=== PATIENT | female | born 1995 | race Two or more races ===

== ENCOUNTER → 2016-07-09 | Outpatient (CLI) | payer SELFPAY | LOC: RAD 18:01 | PROVIDERS: ATTEND Nurse Practitioner Women's Health | DX: Z34.83 Encounter for supervision of other normal pregnancy, third trimester (principal) | CPT/HCPCS: 76805 ==

== ENCOUNTER 2016-09-26 08:44 | Outpatient (CLI) | payer MEDICAID ==
--- NOTE | 2016-09-26 10:17 | Non Stress Test Report ---
Non Stress Test Datetime Report Generated by CPN: 09/26/2016 10:17 DEMOGRAPHIC EGA NST: 36.4 INDICATION Indication for Study (NST) Other: LC MONITORING Monitor Explained: Monitor Explained; Test Explained; Patient Verbalized Understanding Time on Monitor: 09/26/2016 09:11 Time off Monitor: 09/26/2016 09:56 NST Duration: 45 NST INTERVENTIONS NST Interventions: None BABY A: [id number] BABY A Movement : Present Contraction Frequency : 0 FHR Baseline : 135 Accelerations : 15X15 Decelerations : None Variability : Moderate 6-25bpm NST Review: Meets Criteria for Reactive NST NST Review and Verified By : D Bellavance RNC NST Results: Reactive NST REPORT Report Trigger: Send Report
== END 2016-09-26 10:24 | disposition home or self-care (01) ==
LOC: LC 08:44
PROVIDERS: ATTEND Student in an Organized Health Care Education/Training Program
PROC: 4A1HXCZ Monitoring of Products of Conception, Cardiac Rate, External Approach (ICD-10-PCS; principal; 2016-09-26)
DX: Z34.93 Encounter for supervision of normal pregnancy, unspecified, third trimester (principal); Z36 Encounter for antenatal screening of mother; Z3A.36 36 weeks gestation of pregnancy
CPT/HCPCS: 59025

== ENCOUNTER 2016-10-02 11:55 | Inpatient (IN) | payer MEDICAID ==
[2016-10-02 13:15] LABS: ABSOLUTE EOSINOPHILS # (AUTO) 0.1 10^3/uL (0.0-0.6); ABSOLUTE LYMPHOCYTES (AUTO) 1.6 10^3/uL (0.5-4.7); ABSOLUTE MONOCYTES (AUTO) 0.8 10^3/uL (0.1-1.4); ABSOLUTE NEUT (AUTO) 8.6 10^3/uL (1.7-8.2); BASOPHILS % (AUTO) 0.3 % (0-2); EOSINOPHILS % (AUTO) 1.1 % (0-6); HEMOGLOBIN 9.6 g/dL (12.0-15.5); HGB HCT DIFFERENCE -1.2; LYMPHOCYTES % (AUTO) 14.2 % (13-45); MEAN CORPUSCULAR HEMOGLOBIN 25.3 pg (27.0-33.4); MEAN CORPUSCULAR HGB CONC 32.2 g/dL (32.0-36.0); MEAN CORPUSCULAR VOLUME 79 fl (80-97); MONOCYTES % (AUTO) 7.1 % (3-13); RED BLOOD COUNT 3.82 10^6/uL (3.72-5.28); RED CELL DISTRIBUTION WIDTH 17.2 % (11.5-14.0); SEGMENTED NEUTROPHILS % (AUTO) 77.3 % (42-78); WHITE BLOOD COUNT 11.2 10^3/uL (4.0-10.5)
[2016-10-02] MEDS ORDERED: LIDOCAINE 1% INJ-PF (10 MG/ML) 30 ML SDV ONE (14:05)
[2016-10-02] MEDS ORDERED: OXYTOCIN/NORMAL SALINE 20 UNIT/1,000 ML RTUINJ ONE (14:05)
[2016-10-02] MEDS ORDERED: MISOPROSTOL 0.2 MG TABLET ONE (14:05)
[2016-10-02] MEDS ORDERED: PROMETHAZINE HCL INJ 25 MG/1 ML VIAL IV PRN (14:25)
[2016-10-02] MEDS ORDERED: MEASLES,MUMPS&RUBELLA VACC/PF 0.5 ML VIAL SUBCUT PRN (14:25)
[2016-10-02] MEDS ORDERED: ACETAMINOPHEN WITH CODEINE #3 TABLET PO PRN (14:25)
[2016-10-02] MEDS ORDERED: DIPHENHYDRAMINE HCL 25 MG CAPSULE PO PRN (14:25)
[2016-10-02] MEDS ORDERED: PROMETHAZINE HCL 25 MG TABLET PO PRN (14:25)
[2016-10-02] MEDS ORDERED: DIBUCAINE 1% OINTMENT 28 GM TP PRN (14:25)
[2016-10-02] MEDS ORDERED: PSEUDOEPHEDRINE HCL 30 MG TABLET PO PRN (14:25)
[2016-10-02] MEDS ORDERED: BENZOCAINE/MENTHOL AEROSOL SPRAY 56 ML TOP PRN (14:25)
[2016-10-02] MEDS ORDERED: NA PHOS,M-B/NA PHOS,DI-BA (ADULT) 133 ML ENEMA PR PRN (14:25)
[2016-10-02] MEDS ORDERED: OXYTOCIN/NORMAL SALINE 1,000 ML IV PRN (14:25)
[2016-10-02] MEDS ORDERED: MISOPROSTOL 0.2 MG TABLET PR ONE (14:25)
[2016-10-02] MEDS ORDERED: MAGNESIUM HYDROXIDE SUSP 30 ML UDCUP PO PRN (14:25)
[2016-10-02] MEDS ORDERED: GLYCERIN/WITCH HAZEL LEAF 1 EACH MED..PAD TP PRN (14:25)
[2016-10-02] MEDS ORDERED: ACETAMINOPHEN 650 MG SUPP.RECT PR PRN (14:25)
[2016-10-02] MEDS ORDERED: PROMETHAZINE HCL 25 MG SUPP.RECT PR PRN (14:25)
[2016-10-02] MEDS ORDERED: DIPH/PERTUSS(ACELL)/TETANUS VAC/PF 0.5 ML SYR (>=10YO) IM PRN (14:25)
[2016-10-02] MEDS: IBUPROFEN 800 MG TABLET PO SCH (15:21)
[2016-10-02] MEDS ORDERED: IBUPROFEN 800 MG TABLET ONE (15:22)
[2016-10-02 16:14] LABS: APPEARANCE,URINE CLOUDY; BILIRUBIN,URINE NEGATIVE (NEGATIVE); GLUCOSE, URINE NEGATIVE (NEGATIVE); KETONES,URINE 20 mg/dL (NEGATIVE); LEUKOCYTE ESTERASE,URINE TRACE (NEGATIVE); NITRITE,URINE NEGATIVE (NEGATIVE); PROTEIN,URINE 30 mg/dL (NEGATIVE); URINE SPECIFIC GRAVITY 1.008; UROBILINOGEN,URINE NEGATIVE mg/dL (<2.0)
[2016-10-02 16:34] LABS: URINE BARBITURATES SCREEN NEGATIVE; URINE METHADONE SCREEN NEGATIVE; URINE OPIATES LOW NEGATIVE; URINE PHENCYCLIDINE SCREEN NEGATIVE
[2016-10-02] MEDS: DOCUSATE SODIUM 100 MG CAPSULE PO SCH (17:29)
[2016-10-02] MEDS: FERROUS SULFATE 325 MG TABLET PO SCH (17:29)
[2016-10-02] MEDS: ACETAMINOPHEN WITH CODEINE #3 TABLET PO PRN (19:00)
[2016-10-02] MEDS: FAMOTIDINE 20 MG TABLET PO SCH (21:24)
[2016-10-03] MEDS: IBUPROFEN 800 MG TABLET PO SCH ×3 (05:04→21:09)
[2016-10-03 08:04] LABS: HEMATOCRIT 26.6 % (36.0-47.0); HEMOGLOBIN 8.8 g/dL (12.0-15.5); HGB HCT DIFFERENCE -0.2; MEAN CORPUSCULAR HEMOGLOBIN 25.8 pg (27.0-33.4); MEAN CORPUSCULAR VOLUME 78 fl (80-97); RED BLOOD COUNT 3.39 10^6/uL (3.72-5.28); RED CELL DISTRIBUTION WIDTH 17.3 % (11.5-14.0); WHITE BLOOD COUNT 11.9 10^3/uL (4.0-10.5)
[2016-10-03] MEDS: FERROUS SULFATE 325 MG TABLET PO SCH ×2 (09:49→17:12)
[2016-10-03] MEDS: PRENATAL VITAMIN W-O CA NO5/FE FUMARATE/FA CAPSULE PO SCH (09:50)
[2016-10-03] MEDS: DOCUSATE SODIUM 100 MG CAPSULE PO SCH ×2 (09:50→17:12)
[2016-10-03] MEDS: SENNOSIDES/DOCUSATE 8.6-50 MG 1 EACH TABLET PO SCH (09:50)
[2016-10-03] MEDS: FAMOTIDINE 20 MG TABLET PO SCH ×2 (09:50→21:09)
--- NOTE | 2016-10-03 09:58 | PDOC PROGRESS REPORT ---
Subjective-OB Subjective: Post Delivery Day: 21 year old. Denies any needs at this time Physical Exam (OB) Vital Signs: Temp Pulse Resp BP Pulse Ox 97.8 F 64 14 127/81 H 100 10/03/16 07:34 10/03/16 07:34 10/03/16 07:34 10/03/16 07:34 10/03/16 07:34 - Lochia Lochia Amount: Scant < 10 ml Lochia Color: Rubra/Red - Abdomen Description: Tender, Soft Hernia Present: No Bowel Sounds: Normoactive Flatus Presence: Present Stool: No Fundal Description: Firm, Midline Fundal Height: u/u - u/2 Objective-Diagnostic Laboratory: 10/03/16 07:41 10/02/16 10/02/16 10/02/16 12:53 12:53 15:55 WBC 11.2 H RBC 3.82 Hgb 9.6 L Hct 30.0 L MCV 79 L MCH 25.3 L MCHC 32.2 RDW 17.2 H Plt Count 328 Seg Neutrophils % 77.3 Lymphocytes % 14.2 Monocytes % 7.1 Eosinophils % 1.1 Basophils % 0.3 Absolute Neutrophils 8.6 H Absolute Lymphocytes 1.6 Absolute Monocytes 0.8 Absolute Eosinophils 0.1 Absolute Basophils 0.0 Urine Color RED Urine Appearance CLOUDY Urine pH 8.0 Ur Specific [place] 1.008 Urine Protein 30 H Urine Glucose (UA) NEGATIVE Urine Ketones 20 H Urine Blood LARGE H Urine Nitrite NEGATIVE Ur Leukocyte Esterase TRACE H Blood Type A POSITIVE Antibody Screen NEGATIVE 10/03/16 07:41 WBC 11.9 H RBC 3.39 L Hgb 8.8 L Hct 26.6 L MCV 78 L MCH 25.8 L MCHC 33.0 RDW 17.3 H Plt Count 250 Seg Neutrophils % Lymphocytes % Monocytes % Eosinophils % Basophils % Absolute Neutrophils Absolute Lymphocytes Absolute Monocytes Absolute Eosinophils Absolute Basophils Urine Color Urine Appearance Urine pH Ur Specific [place] Urine Protein Urine Glucose (UA) Urine Ketones Urine Blood Urine Nitrite Ur Leukocyte Esterase Blood Type Antibody Screen
[2016-10-03] MEDS: ACETAMINOPHEN WITH CODEINE #3 TABLET PO PRN (23:06)
[2016-10-04] MEDS: IBUPROFEN 800 MG TABLET PO SCH (05:01)
[2016-10-04] MEDS: ACETAMINOPHEN WITH CODEINE #3 TABLET PO PRN (05:03)
[2016-10-04 08:34] VITALS: BP 119/68
--- NOTE | 2016-10-04 10:44 | PDOC PROGRESS REPORT ---
Subjective-OB Subjective: Post Delivery Day: 21 year old. Denies any needs at this time. Ready to go home. Physical Exam (OB) Vital Signs: Temp Pulse Resp BP Pulse Ox 98.0 F 61 14 119/68 100 10/04/16 07:53 10/04/16 07:53 10/04/16 07:53 10/04/16 07:53 10/04/16 07:53 Intake & Output 10/03/16 10/04/16 10/05/16 06:59 06:59 06:59 Weight 192 kg - Lochia Lochia Amount: Scant < 10 ml Lochia Color: Serosa/Brown - Abdomen Description: Soft Hernia Present: No Bowel Sounds: Normoactive Flatus Presence: Present Stool: Yes Fundal Description: Firm, Midline Fundal Height: u/u - u/2 Objective-Diagnostic Laboratory: 10/03/16 07:41
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
[2016-10-04] MEDS: SENNOSIDES/DOCUSATE 8.6-50 MG 1 EACH TABLET PO SCH (10:54)
[2016-10-04] MEDS: FERROUS SULFATE 325 MG TABLET PO SCH (10:54)
[2016-10-04] MEDS: DOCUSATE SODIUM 100 MG CAPSULE PO SCH (10:54)
[2016-10-04] MEDS: PRENATAL VITAMIN W-O CA NO5/FE FUMARATE/FA CAPSULE PO SCH (10:54)
[2016-10-04] MEDS: FAMOTIDINE 20 MG TABLET PO SCH (10:55)
--- NOTE | 2016-10-06 23:42 | Admission Physical ---
Datetime Report Generated by CPN: 10/06/2016 23:41 CURRENT ADMISSION Hx Assessment: The History has been Reviewed and is Current Chief Complaint: Uterine Contractions; Suspected Ruptured Membranes Indication for Induction: Not Applicable Admit Plan: Admit to Unit; Initiate Labor Protocol ALLERGIES Medication Allergies: Yes Medication Allergies: bupropion HCl/Seizures (10/19/2015) Latex: No Latex Allergies Food Allergies: denies Environmental Allergies: denies OBSTETRICAL HISTORY EDC: 10/20/2016 00:00 : 2 Para: 1 Term: 1 : 0 SAB: 0 IAB: 0 Ectopic: 0 Livin Cesareans: 0 VBACs: 0 Multiple Births: 0 Gestational Diabetes: No Rh Sensitization: No Incompetent Cervix: No PATRICIA: No Infertility: No ART Treatment: No Uterine Anomaly: No IUGR: No Hx Previous C/S: No Macrosomia: No Hx Loss/Stillborn: No PIH: No Hx : No Placenta Previa/Abruption: No Depression/PP Depression: No PTL/PROM: No Post Hemorrhage: No Current Procedures: Ultrasound; NST Obstetrical History Comments: G1:mat 2016 babygirl G2: current SEE RECORDS Alcohol: No Marijuana : No Cocaine: No Other Illicit Drugs: No Cigarettes: Former Smoker. [id number] MEDICAL HISTORY Diabetes: No Blood Transfusion: No Pulmonary Disease (Asthma, TB): No Breast Disease: No Hypertension: No [employer] Surgery: No Heart Disease: No Hosp/Surgery: Yes Autoimmune Disorder: No Anesthetic Complications: No Kidney Disease: No Abnormal Pap Smear: No Neuro/Epilepsy: No Psychiatric Disorders: No Other Medical Diseases: No Hepatitis/Liver Disease: No Significant Family History: No Varicosities/Phlebitis: No Trauma/Violence : No Thyroid Dysfunction: No INFECTIOUS HISTORY Gonorrhea: No Genital Herpes: No Chlamydia: No Tuberculosis: No Syphilis: No Hepatitis: No HIV/AIDS Exposure: No Rash or Viral Illness: No HPV: No PHYSICAL EXAM General: Normal HEENT: Normal Neurologic: Normal Thyroid: Normal Heart: Normal Lungs: Normal Breast: Deferred Back: Normal Abdomen: Normal Genitourinary Exam: Normal Extremities: Normal DTRs: Normal Pelvic Type: Adequate Physical Exam Comments: GBS neg + Mec Late Care Hx IUGR Smoker, Obesity THC smoker Mitral Valve Regurg, Echo Anemia Vital Signs: Reviewed FETUS A EGA: 37.3 Monitoring: External US FHR- Baseline: 130 Variability: Moderate 6-25bpm Accelerations: 15X15 Decelerations: None Admit Comment: Admitted to labor and delivery for SROM, irregular uc's, + Mec, 5 cm, 37+3 weeks Cat 1 strip PLANS FOR LABOR AND DELIVERY Labor and Delivery: None Pain Management: Epidural Feeding Preference: Formula Benefit of Breast Feed Discussed: Yes Circumcision: No INFORMED CONSENT Assignment: Maria T Argueta MD Signature: with User ID: Rianna : with User ID: [email or web address]
--- NOTE | 2016-10-06 23:43 | Delivery Summary ---
Del Sum A-C Datetime Report Generated by CPN: 10/06/2016 23:41 DELIVERY PERSONNEL DELIVERY PERSONNEL: [phone] Delivery Doctor:: Filomena Sanchez CNM Labor and Delivery Nurse:: Shannon Argueta RNlong haul truck driver Nurse:: REG Antoine/AIRLINE MANAGERIAL SUPERVISOR: Brit Tabares CNA II MATERNAL INFORMATION Delivery Anesthesia: None Medications After Delivery: Pitocin Bolus-Please Comment; Cytotec 600mcg Per Rectum/Vagina Meds After Delivery Comment: 20 units Pitocin in 1 L NS bolusing per order Estimated Blood Loss (ml): 200 Maternal Complications: Precipitous Labor (<3hrs) Provider Comments: pt progressed quickly, out of control, viable male from OA to SILVER over intact perineum from OA to SILVER position, spont delivery of grossly nl intact placenta, 3 vc, EBL 200cc, FFFFM, cytotec 600 mcg via rectum cath after delivery 300cc, baby was placed on mothers abd and cord clamped and cut by FOB after 2 min Baby remains on mothers abd for bonding LABOR SUMMARY EDC: 10/20/2016 00:00 No. Babies in Womb: 1 Attempted: No Labor Anesthesia: None LABOR INFORMATION Reason for Induction: Not Applicable Onset of Labor: 10/02/2016 11:40 Complete Dilatation: 10/02/2016 14:00 Oxytocin: N/A Group B Beta Strep: negative Antibiotics # of Doses: 0 Name of Antibiotic Given: n/a Steroids Given: None Reason Steroids Not Administered: Not Applicable MEMBRANES Membranes Rupture Method: Spontaneous Rupture of Membranes: 10/02/2016 11:40 Length of Rupture (hr): 2.48 Amniotic Fluid Color: Clear Amniotic Fluid Amount: Moderate Amniotic Fluid Odor: Normal STAGES OF LABOR Stage 1 hr: 2 Stage 1 min: 20 Stage 2 hr: 0 Stage 2 min: 9 Stage 3 hr: 0 Stage 3 min: 5 Total Time in Labor hr: 2 Total Time in Labor min: 34 VAGINAL DELIVERY Episiotomy: None Laceration Extension: N/A Laceration Type: None Laceration Repair: Not Applicable Sponge Count Correct: N/A Sharps Count Correct: N/A CSECTION DELIVERY Primary Indication: N/A Secondary Indication: N/A CSection Incidence: N/A Labor: N/A Elective: N/A CSection Incision: N/A BABY A INFORMATION Delivery Date/Time: 10/02/2016 14:09 Method of Delivery: Vaginal Born in Route : No : N/A Forceps: N/A Vacuum Extraction: N/A PRESENTATION/POSITION BABY A Presentation: Cephalic Cephalic Presentation: Vertex Vertex Position: Left Occipital Anterior Breech Presentation: N/A PLACENTA INFORMATION BABY A Placenta Delivery Time : 10/02/2016 14:14 Placenta Method of Delivery: Spontaneous Placenta Status: Delivered SCORES BABY A Heart Rate 1 min: >100 bpm Resp Effort 1 min: Good Cry Reflex Irritability 1 min: Cough or Sneeze or Pulls Away Muscle Tone 1 min: Active Motion Color 1 min: Blue/Pale Resuscitation Effort 1 min: Tactile Stimulation SCORE 1 MIN: 8 Heart Rate 5 min: >100 bpm Resp Effort 5 min: Good Cry Reflex Irritability 5 min: Cough or Sneeze or Pulls Away Muscle Tone 5 min: Active Motion Color 5 min: Body [place], Extremities Blue Resuscitation Effort 5 min: Tactile Stimulation SCORE 5 MIN: 9 INFORMATION BABY A Gestational Age at Delivery: 37.3 Gestational Status: Early Term- 37- 38.6 Weeks Outcome : Liveborn Infant Condition : Stable Sex: Male IDENTIFICATION BABY A Verification Date/Time: 10/02/2016 14:30 ID Band Number: [id number] Mother's Name Verified: Yes Infant RN Verifying Infant: MKelley Kendall, RN, B. Rouland, RN WEIGHT/LENGTH BABY A Birthweight (gm): 3050 Weight (lb): 6 Infant Weight (oz): 12 Infant Length (in): 19.25 Length (cm): 48.90 CORD INFORMATION BABY A No. Cord Vessels: 3 Nuchal Cord : Around Neck x1, Loose Cord Blood Taken: Yes-For Storage (Mom's Blood type +) Infant Suction: Mouth; Nose ASSESSMENT BABY A Infant Complications: None Physical Findings at Delivery: Within Normal Limits Respirations: Appears Normal Skin to Skin: Yes [place]/ALS Called : No Infant Care By: Nani Zhang RN
== END 2016-10-04 13:52 | disposition home or self-care (01) | DRG 775 ==
LOC: LC 11:55 → LR 12:32 → 2S 16:35
PROVIDERS: ADMIT Obstetrics & Gynecology; ATTEND Obstetrics & Gynecology
PROC: 10E0XZZ Delivery of Products of Conception, External Approach (ICD-10-PCS; principal; 2016-10-02)
PROC: 4A1HXCZ Monitoring of Products of Conception, Cardiac Rate, External Approach (ICD-10-PCS; 2016-10-02)
DX: O99.02 Anemia complicating childbirth (principal); O99.324 Drug use complicating childbirth; Z68.45 Body mass index [BMI] 70 or greater, adult; O99.344 Other mental disorders complicating childbirth; F32.9 Major depressive disorder, single episode, unspecified; F12.980 Cannabis use, unspecified with anxiety disorder; O99.214 Obesity complicating childbirth; D64.9 Anemia, unspecified; O62.3 Precipitate labor; O69.81X0 Labor and delivery complicated by cord around neck, without compression, not applicable or unspecified; E66.9 Obesity, unspecified; Z87.891 Personal history of nicotine dependence; Z88.8 Allergy status to other drugs, medicaments and biological substances; Z3A.37 37 weeks gestation of pregnancy; Z37.0 Single live birth
CPT/HCPCS: 36415; 80307; 81005; 85025; 85027; 86592; 86850; 86900; 86901; 88307; J2590; J3490

== ENCOUNTER 2017-07-28 17:10 | Emergency (ER) | payer SELFPAY ==
[2017-07-28 17:40] VITALS: BP 127/64
--- NOTE | 2017-07-28 18:04 | ER Document Report ---
ED Medical Screen (RME) - General Chief Complaint: Vaginal Bleeding Stated Complaint: VAGINAL BLEEDING Time Seen by Provider: 07/28/17 18:02 Notes: Patient states in late May she had an elective . She states in June she had no symptoms. She states starting several days ago she began to have severe lower abdominal cramps ago and her hips and back as well as intermittent heavy vaginal bleeding with passing of large clots. TRAVEL OUTSIDE OF THE [place] IN LAST 30 DAYS: No - Related Data Allergies/Adverse Reactions: bupropion HCl [From Wellbutrin] Allergy (Verified 10/19/15 06:24) Seizures Past Medical History GI Medical History: Reports: Hx Gastroesophageal Reflux Disease Psychiatric Medical History: Reports: Hx Depression - Immunizations Immunizations up to date: Yes Hx Diphtheria, Pertussis, Tetanus Vaccination: Yes Physical Exam - Vital signs Vitals: Temp Pulse Resp BP Pulse Ox 98.5 F 80 18 127/64 H 99 07/28/17 17:38 07/28/17 17:38 07/28/17 17:38 07/28/17 17:38 07/28/17 17:38 Course - Vital Signs Vital signs: Temp Pulse Resp BP Pulse Ox 98.5 F 80 18 127/64 H 99 07/28/17 17:38 07/28/17 17:38 07/28/17 17:38 07/28/17 17:38 07/28/17 17:38
[2017-07-28 19:08] LABS: ABSOLUTE BASOPHILS # (AUTO) 0.1 10^3/uL (0.0-0.2); ABSOLUTE EOSINOPHILS # (AUTO) 0.4 10^3/uL (0.0-0.6); ABSOLUTE LYMPHOCYTES (AUTO) 2.6 10^3/uL (0.5-4.7); ABSOLUTE MONOCYTES (AUTO) 0.3 10^3/uL (0.1-1.4); ABSOLUTE NEUT (AUTO) 3.3 10^3/uL (1.7-8.2); EOSINOPHILS % (AUTO) 5.8 % (0-6); HEMATOCRIT 36.4 % (36.0-47.0); HEMOGLOBIN 11.8 g/dL (12.0-15.5); LYMPHOCYTES % (AUTO) 38.7 % (13-45); MEAN CORPUSCULAR HEMOGLOBIN 25.2 pg (27.0-33.4); MEAN CORPUSCULAR HGB CONC 32.3 g/dL (32.0-36.0); MEAN CORPUSCULAR VOLUME 78 fl (80-97); MONOCYTES % (AUTO) 4.8 % (3-13); PLATELET COUNT 366 10^3/uL (150-450); RED BLOOD COUNT 4.67 10^6/uL (3.72-5.28); RED CELL DISTRIBUTION WIDTH 15.6 % (11.5-14.0); SEGMENTED NEUTROPHILS % (AUTO) 49.7 % (42-78); TOTAL CELLS COUNTED % (AUTO) 100 %; WHITE BLOOD COUNT 6.7 10^3/uL (4.0-10.5)
--- NOTE | 2017-07-28 19:10 | ER Document Report ---
ED GI/ - General Chief Complaint: Vaginal Bleeding Stated Complaint: VAGINAL BLEEDING Time Seen by Provider: 07/28/17 18:02 Mode of Arrival: Ambulatory Information source: Patient TRAVEL OUTSIDE OF THE [place] IN LAST 30 DAYS: No - HPI Notes: 07/28/17 19:58 22-year-old lady presented today for evaluation of vaginal bleeding for the past 2 days. Patient reported that her bleeding is moderate, patient is passing multiple clots. Patient denies any lightheadedness or dizziness. Patient does have generalized abdominal cramping associated with her symptoms. Patient is not . Patient had D&C in May for elective . Patient denies any fevers, chills, nausea or vomiting. - Related Data Allergies/Adverse Reactions: bupropion HCl [From Wellbutrin] Allergy (Verified 10/19/15 06:24) Seizures Past Medical History - Social History Smoking Status: Current Every Day Smoker Frequency of alcohol use: Occasional Drug Abuse: None Family History: Reviewed & Not Pertinent Patient has suicidal ideation: No Patient has homicidal ideation: No Renal/ Medical History: Denies: Hx Peritoneal Dialysis GI Medical History: Reports: Hx Gastroesophageal Reflux Disease Psychiatric Medical History: Reports: Hx Depression - Immunizations Immunizations up to date: Yes Hx Diphtheria, Pertussis, Tetanus Vaccination: Yes Review of Systems - Review of Systems Notes: REVIEW OF SYSTEMS: CONSTITUTIONAL: -fevers, -chills EENT: -eye pain, -difficulty swallowing, -nasal congestion CARDIOVASCULAR: -chest pain, -syncope. RESPIRATORY: -cough, -SOB GASTROINTESTINAL: +abdominal cramping-nausea, -vomiting, -diarrhea GENITOURINARY: -dysuria, -hematuria, + vaginal bleeding MUSCULOSKELETAL: -back pain, -neck pain SKIN: -rash or skin lesions. HEMATOLOGIC: -easy bruising or bleeding. LYMPHATIC: -swollen, enlarged glands. NEUROLOGICAL: -altered mental status or loss of consciousness, -headache, - neurologic symptoms PSYCHIATRIC: -anxiety, -depression. ALL OTHER SYSTEMS REVIEWED AND NEGATIVE. Physical Exam - Vital signs Vitals: Temp Pulse Resp BP Pulse Ox 98.5 F 80 18 127/64 H 99 07/28/17 17:38 07/28/17 17:38 07/28/17 17:38 07/28/17 17:38 07/28/17 17:38 - Notes Notes: Reviewed vital signs and nursing note as charted by RN. CONSTITUTIONAL: Alert and oriented and responds appropriately to questions HEAD: Normocephalic; atraumatic EYES: PERRL; Conjunctivae clear, sclerae non-icteric ENT: normal nose; no rhinorrhea; moist mucous membranes; pharynx without lesions noted NECK: Supple without meningismus; non-tender; no cervical lymphadenopathy, no masses CARD: Regular rate and rhythm; no murmurs, no clicks, no rubs, no gallops; symmetric distal pulses RESP: Normal chest excursion without splinting or tachypnea; breath sounds clear and equal bilaterally ABD/GI: Normal bowel sounds; non-distended; soft, BACK: The back appears normal and is non-tender to palpation EXT: Normal ROM in all joints; non-tender to palpation; no cyanosis, no effusions, no edema SKIN: Normal color for age and race; warm; dry; good turgor; capillary refill < 2 seconds; no acute lesions noted NEURO: .Cranial nerves 3-12 intact. Motor strength 5/5 bilaterally. Sensation intact to touch bilaterally PSYCH: The patient's mood and manner are appropriate. Grooming and personal hygiene are appropriate. Course - Re-evaluation Re-evalutation: 07/28/17 19:59 22-year-old here for evaluation of vaginal bleeding Differential diagnoses includes ectopic, , anemia, dysfunctional uterine bleeding, uterine fibroids, endometriosis will obtain basic lab work including CBC, BMP, urinalysis as well as urine We will give patient 800 of Motrin Endovaginal ultrasound Reassess patient 07/28/17 20:02 Ultrasound with no acute abnormalities Patient has mild anemia that is better than her prior hemoglobin Patient does not need any transfusion or IV estrogen We will start patient on NSAIDs, follow up with [facility] for further management of dysfunctional uterine bleeding No evidence of endometriosis, no white count or retained products of conception - Vital Signs Vital signs: Temp Pulse Resp BP Pulse Ox 98.5 F 80 18 127/64 H 99 07/28/17 17:38 07/28/17 17:38 07/28/17 17:38 07/28/17 17:38 07/28/17 17:38 - Laboratory Result Diagrams: 07/28/17 18:58 07/28/17 18:58 Laboratory results interpreted by me: 07/28/17 07/28/17 07/28/17 18:58 18:58 18:58 Hgb 11.8 L MCV 78 L MCH 25.2 L RDW 15.6 H Chloride 108 H Carbon Dioxide 21 L Direct Bilirubin 0.5 H AST 12 L Urine Protein 30 H Urine Ketones TRACE H Urine Blood MODERATE H Urine Urobilinogen 4.0 H - Diagnostic Test Radiology reviewed: Image reviewed - EXAM DESCRIPTION: U/S NON-OB PELVIS TV W/O DOP COMPLETED DATE/TIME: 07/28/2017 7:34 pm REASON FOR STUDY: pain/bleeding COMPARISON: None. TECHNIQUE: Dynamic and static grayscale images acquired of the pelvis via transvaginal approach and recorded on PACS. Additional selected color Doppler and spectral images recorded. LIMITATIONS: None. FINDINGS: UTERUS: Contour normal. No mass. Uterus is 9.3 x 6.1 x 4.8 cm in size ENDOMETRIAL STRIPE: No focal or generalized thickening. No masses. Endometrial stripe 2 mm in thickness. Trace fluid in the endometrial canal. CERVIX: No nabothian cysts. RIGHT OVARY: No abnormal masses. Right ovary is 4 x 2.5 x 2.4 cm in size RIGHT OVARY DOPPLER: Normal arterial vascular flow without evidence for torsion. LEFT OVARY: No abnormal masses. Left ovary is 3.3 x 2.8 x 2.6 cm in size LEFT OVARY DOPPLER: Normal arterial vascular flow without evidence for torsion. FREE FLUID: None noted. OTHER: No other significant finding. IMPRESSION: NORMAL TRANSVAGINAL PELVIC ULTRASOUND. TECHNICAL DOCUMENTATION: JOB ID: [id number] [employer]- All Rights Reserved Dictated by: KELVIN PAINTING MD 40 CC: JENNIFER TORRES MD Discharge - Discharge Clinical Impression: DUB (dysfunctional uterine bleeding) Condition: Stable Disposition: HOME, SELF-CARE Instructions: Dysfunctional Uterine Bleeding ([facility]) Additional Instructions: Please take 600-800 mg of Motrin every 6-8 hours for your bleeding as well as pain Please follow-up with [facility] doctors for further management of her dysfunctional uterine bleeding Referrals: DAVID BECERRA MD [ACTIVE STAFF] - Follow up as needed
[2017-07-28 19:12] LABS: APPEARANCE,URINE SLIGHTLY-CLOUDY; BILIRUBIN,URINE NEGATIVE (NEGATIVE); COLOR,URINE YELLOW; GLUCOSE, URINE NEGATIVE (NEGATIVE); KETONES,URINE TRACE mg/dL (NEGATIVE); LEUKOCYTE ESTERASE,URINE NEGATIVE (NEGATIVE); NITRITE,URINE NEGATIVE (NEGATIVE); PROTEIN,URINE 30 mg/dL (NEGATIVE)
[2017-07-28 19:32] LABS: ALANINE AMINOTRANSFERASE 21 U/L (9-52); ALBUMIN 4.6 g/dL (3.5-5.0); ALKALINE PHOSPHATASE 55 U/L (38-126); ANION GAP 11 (5-19); ASPARTATE AMINO TRANSFERASE 12 U/L (14-36); BILIRUBIN,DIRECT 0.5 mg/dL (0.0-0.4); BILIRUBIN,TOTAL 0.5 mg/dL (0.2-1.3); BLOOD UREA NITROGEN 9 mg/dL (7-20); CALCIUM 9.6 mg/dL (8.4-10.2); CARBON DIOXIDE 21 mmol/L (22-30); CHLORIDE 108 mmol/L (98-107); GLUCOSE 82 mg/dL (75-110); POTASSIUM 3.8 mmol/L (3.6-5.0); SODIUM 140.4 mmol/L (137-145); TOTAL PROTEIN 7.7 g/dL (6.3-8.2)
--- NOTE | 2017-07-28 19:49 | RADIOLOGY REPORT (SQ) ---
EXAM DESCRIPTION: U/S NON-OB PELVIS TV W/O DOP COMPLETED DATE/TIME: 07/28/2017 7:34 pm REASON FOR STUDY: pain/bleeding COMPARISON: None. TECHNIQUE: Dynamic and static grayscale images acquired of the pelvis via transvaginal approach and recorded on PACS. Additional selected color Doppler and spectral images recorded. LIMITATIONS: None. FINDINGS: UTERUS: Contour normal. No mass. Uterus is 9.3 x 6.1 x 4.8 cm in size ENDOMETRIAL STRIPE: No focal or generalized thickening. No masses. Endometrial stripe 2 mm in thickn ess. Trace fluid in the endometrial canal. CERVIX: No nabothian cysts. RIGHT OVARY: No abnormal masses. Right ovary is 4 x 2.5 x 2.4 cm in size RIGHT OVARY DOPPLER: Normal arterial vascular flow without evidence for torsion. LEFT OVARY: No abnormal masses. Left ovary is 3.3 x 2.8 x 2.6 cm in size LEFT OVARY DOPPLER: Normal arterial vascular flow without evidence for torsion. FREE FLUID: None noted. OTHER: No other significant finding. IMPRESSION: NORMAL TRANSVAGINAL PELVIC ULTRASOUND. TECHNICAL DOCUMENTATION: JOB ID: [id number] [employer] All Rights Reserved
[2017-07-28] MEDS ORDERED: IBUPROFEN 600 MG TABLET PO ONE (19:58)
== END 2017-07-28 20:05 | disposition home or self-care (01) ==
LOC: ER 17:10
DX: N93.8 Other specified abnormal uterine and vaginal bleeding (principal); F17.200 Nicotine dependence, unspecified, uncomplicated
CPT/HCPCS: 36415; 76830; 80053; 81001; 81025; 85025; 99284

== ENCOUNTER 2018-06-26 15:49 | Emergency (ER) | payer SELFPAY ==
[2018-06-26 16:29] VITALS: BP 108/54
--- NOTE | 2018-06-26 18:08 | ER Document Report ---
ED Medical Screen (RME) - General Chief Complaint: Abdominal Pain Stated Complaint: NAUSEA/HEADACHE Time Seen by Provider: 06/26/18 18:04 Mode of Arrival: Ambulatory Information source: Patient Notes: This is a 22-year-old female with no significant medical history presents to the emergency room with low-grade fevers, cough, congestion, nasal stuffiness, body aches, headache. Patient also states she has been having a lump on the right side of her abdominal wall that she is concerned about. She denies any anal bleeding or vaginal discharge. She does states she has had a cough productive of sputum and has postnasal discharge. Patient's sinuses have been acting up for the past 2 weeks. TRAVEL OUTSIDE OF THE [place] IN LAST 30 DAYS: No - HPI Onset: Other - Patient has had sinus symptoms for the past 2 weeks Quality of pain: Dull Severity: Mild Associated Symptoms: Chills, Cough (nonproductive), Diarrhea, Fever, Sinus pain/drainage, Other - Postnasal discharge Exacerbated by: Denies Relieved by: Denies Similar symptoms previously: Yes Recently seen / treated by doctor: No - Related Data Smoking: Non-smoker Frequency of alcohol use: None Drug Abuse: None Allergies/Adverse Reactions: bupropion HCl [From Wellbutrin] Allergy (Verified 06/26/18 15:56) Seizures Past Medical History - General Information source: Patient - Social History Cigarette use (# per day): No Chew tobacco use (# tins/day): No Frequency of alcohol use: None Drug Abuse: None Lives with: Family Family history: None - Medical History Medical History: Negative Renal/ Medical History: Denies: Hx Peritoneal Dialysis GI Medical History: Reports: Hx Gastroesophageal Reflux Disease Psychiatric Medical History: Reports: Hx Depression Surgical Hx: Negative - Immunizations Immunizations up to date: Yes Hx Diphtheria, Pertussis, Tetanus Vaccination: Yes Review of Systems - Review of Systems Constitutional: Chills, Fever EENT: Nose congestion, Sinus pressure, Sinus discharge, Throat pain. denies: Difficulty swallowing, Throat swelling Cardiovascular: denies: Chest pain, Palpitations, Heart racing Respiratory: Cough. denies: Short of breath, Wheezing Gastrointestinal: Diarrhea. denies: Abdominal pain, Vomiting, Blood in vomit Genitourinary: denies: Burning, Dysuria, Discharge Female Genitourinary: No symptoms reported Musculoskeletal: See HPI Skin: No symptoms reported Hematologic/Lymphatic: No symptoms reported Neurological/Psychological: No symptoms reported Physical Exam - Vital signs Vitals: Temp Pulse Resp BP Pulse Ox 98.0 F 75 18 108/54 L 100 06/26/18 16:28 06/26/18 16:28 06/26/18 16:28 06/26/18 16:28 06/26/18 16:28 Notes: Physical exam: GENERAL: She is alert and oriented x3, she looks good. HEAD: Atraumatic, normocephalic. EYES: Pupils equal round and reactive to light, extraocular movements intact, sclera anicteric, conjunctiva are normal. ENT: TMs normal, nose congestion, rhinorrhea, oropharynx erythematous without exudates. Postnasal discharge evident. She does have tenderness to the maxillary sinuses. Moist mucous membranes. NECK: Normal range of motion, supple without obvious mass or significant adenopathy. LUNGS: Breath sounds clear to auscultation bilaterally and equal. No wheezes rales or rhonchi. HEART: Regular rate and rhythm without murmurs, rubs or gallops. ABDOMEN: Soft, normoactive bowel sounds. No tenderness to palpation. No guarding, no rebound. No masses appreciated. EXTREMITIES: Normal range of motion, no pitting or edema. No clubbing or cyanosis. NEUROLOGICAL: Cranial nerves II through XII grossly intact. Normal speech, moving all extremities. PSYCH: Normal mood, normal affect. SKIN: Warm, Dry, normal turgor, no rashes or lesions noted. Course - Vital Signs Vital signs: Temp Pulse Resp BP Pulse Ox 98.0 F 75 18 108/54 L 100 06/26/18 16:28 06/26/18 16:28 06/26/18 16:28 06/26/18 16:28 06/26/18 16:28 Doctor's Discharge - Discharge Clinical Impression: Sinusitis Condition: Stable Disposition: HOME, SELF-CARE Instructions: Sinusitis ([facility]) Additional Instructions: Your symptoms are most consistent with a sinusitis today. Given that your symptoms have been going on for 2 weeks, we are going to prescribe an antibiotic. Take the antibiotic as prescribed. In addition, its important to try and let the sinuses drain effectively so that they can heal: Try "simply saline" which is a nasal saline spray sold at the pharmacy (you can get it when you go for the antibiotics). Use the simply saline nasal spray to both nostrils to clear the sinus passages. Use it several times a day. You could take some ibuprofen for pain and discomfort. Return to the emergency room for any worsening pain or any abdominal pain: Specifically the right lower side. Return if you feel like your symptoms are getting worse. Prescriptions: Amoxicillin Trihydrate [Amoxil 875 mg Tablet] 1 tab PO BID #20 tablet
== END 2018-06-26 18:19 | disposition home or self-care (01) ==
LOC: ER 15:49
DX: J32.9 Chronic sinusitis, unspecified (principal); R50.9 Fever, unspecified; R05 Cough; R51 Headache; R09.82 Postnasal drip; R19.7 Diarrhea, unspecified; R09.81 Nasal congestion; J34.89 Other specified disorders of nose and nasal sinuses; R07.0 Pain in throat; Z88.8 Allergy status to other drugs, medicaments and biological substances
CPT/HCPCS: 99283

== ENCOUNTER 2019-01-09 09:19 | Emergency (ER) | payer SELFPAY ==
[2019-01-09 09:40] VITALS: BP 114/68
--- NOTE | 2019-01-09 10:04 | ER Document Report ---
ED Medical Screen (RME) - General Chief Complaint: Abdominal Pain Stated Complaint: ABDOMINAL PAIN Time Seen by Provider: 01/09/19 09:55 Mode of Arrival: Ambulatory Information source: Patient Notes: This 23-year-old female presents emergency department with multiple complaints. She reports she has had upper abdominal pain that radiates to her back for the past 2 months. She complains of left flank pain. She also reports her last BM yesterday was runny diarrhea bloody. Complains of nausea without vomiting. Reports she was she could vomit to make her feel better. Denies fever. Last menstrual period was December 07 she is unsure if she is . . Reports she has unprotected sex. Denies vaginal discharge, denies vaginal discharge denies pain with void. Mother also reports she has not been sleeping well for the past 2 months. Upper abdomen tender to palpation denies pain when I palpate her lower abdomen. Also complains of left flank pain. I have greeted and performed a rapid initial assessment of this patient. A comprehensive ED assessment and evaluation of the patient, analysis of test results and completion of the medical decision making process will be conducted by additional ED providers. Dictation of this chart was performed using voice recognition software; therefore, there may be some unintended grammatical errors. TRAVEL OUTSIDE OF THE [place] IN LAST 30 DAYS: No - Related Data Allergies/Adverse Reactions: bupropion HCl [From Wellbutrin] Allergy (Verified 01/09/19 09:36) Seizures Past Medical History - Social History Chew tobacco use (# tins/day): No Frequency of alcohol use: None Drug Abuse: None Family history: None Renal/ Medical History: Denies: Hx Peritoneal Dialysis GI Medical History: Reports: Hx Gastroesophageal Reflux Disease Psychiatric Medical History: Reports: Hx Depression - Immunizations Immunizations up to date: Yes Hx Diphtheria, Pertussis, Tetanus Vaccination: Yes Physical Exam - Vital signs Vitals: Temp Pulse Resp BP Pulse Ox 98.3 F 83 16 114/68 99 01/09/19 09:39 01/09/19 09:39 01/09/19 09:39 01/09/19 09:39 01/09/19 09:39 Course - Vital Signs Vital signs: Temp Pulse Resp BP Pulse Ox 98.3 F 83 16 114/68 99 01/09/19 09:39 01/09/19 09:39 01/09/19 09:39 01/09/19 09:39 01/09/19 09:39
[2019-01-09 11:11] LABS: APPEARANCE,URINE SLIGHTLY-CLOUDY; BILIRUBIN,URINE NEGATIVE (NEGATIVE); COLOR,URINE YELLOW; GLUCOSE, URINE NEGATIVE (NEGATIVE); KETONES,URINE 20 mg/dL (NEGATIVE); LEUKOCYTE ESTERASE,URINE NEGATIVE (NEGATIVE); NITRITE,URINE NEGATIVE (NEGATIVE); PROTEIN,URINE NEGATIVE (NEGATIVE); URINE SPECIFIC GRAVITY 1.021
[2019-01-09 11:18] LABS: ABSOLUTE EOSINOPHILS # (AUTO) 0.4 10^3/uL (0.0-0.6); ABSOLUTE MONOCYTES (AUTO) 0.4 10^3/uL (0.1-1.4); ABSOLUTE NEUT (AUTO) 3.9 10^3/uL (1.7-8.2); BASOPHILS % (AUTO) 0.6 % (0-2); EOSINOPHILS % (AUTO) 5.4 % (0-6); HEMATOCRIT 38.5 % (36.0-47.0); LYMPHOCYTES % (AUTO) 29.3 % (13-45); MEAN CORPUSCULAR HEMOGLOBIN 25.9 pg (27.0-33.4); MEAN CORPUSCULAR HGB CONC 31.3 g/dL (32.0-36.0); MEAN CORPUSCULAR VOLUME 83 fl (80-97); MONOCYTES % (AUTO) 6.3 % (3-13); PLATELET COUNT 286 10^3/uL (150-450); RED BLOOD COUNT 4.64 10^6/uL (3.72-5.28); RED CELL DISTRIBUTION WIDTH 15.8 % (11.5-14.0); SEGMENTED NEUTROPHILS % (AUTO) 58.4 % (42-78); TOTAL CELLS COUNTED % (AUTO) 100 %; WHITE BLOOD COUNT 6.7 10^3/uL (4.0-10.5)
[2019-01-09 11:38] LABS: ALBUMIN 4.2 g/dL (3.5-5.0); ALKALINE PHOSPHATASE 48 U/L (38-126); ANION GAP 7 (5-19); ASPARTATE AMINO TRANSFERASE 11 U/L (14-36); BILIRUBIN,DIRECT 0.1 mg/dL (0.0-0.4); BILIRUBIN,TOTAL 0.5 mg/dL (0.2-1.3); BLOOD UREA NITROGEN 10 mg/dL (7-20); CALCIUM 9.6 mg/dL (8.4-10.2); CARBON DIOXIDE 23 mmol/L (22-30); CHLORIDE 108 mmol/L (98-107); GLUCOSE 95 mg/dL (75-110); POTASSIUM 4.3 mmol/L (3.6-5.0); TOTAL PROTEIN 7.1 g/dL (6.3-8.2)
--- NOTE | 2019-01-09 12:14 | RADIOLOGY REPORT (SQ) ---
EXAM DESCRIPTION: U/S ABDOMEN LIMITED W/O DOP COMPLETED DATE/TIME: 01/09/2019 11:41 am REASON FOR STUDY: upper abd pain nausea COMPARISON: None. TECHNIQUE: Dynamic and static grayscale images acquired of the abdomen and recorded on PACS. Additio nal selected color Doppler and spectral images recorded. LIMITATIONS: None. FINDINGS: PANCREAS: No masses. Visualized pancreatic duct normal caliber. LIVER: No masses. Echotexture normal. LIVER VASCULATURE: Normal directional flow of the main portal vein and hepatic veins. GALLBLADDER: No stones. Normal wall thickness. No pericholecystic fluid. ULTRASOUND-DETECTED LEYVA'S SIGN: Negative. INTRAHEPATIC DUCTS AND COMMON DUCT: CBD and intrahepatic ducts normal caliber. No filling defects. INFERIOR VENA CAVA: Normal flow. AORTA: No aneurysm. RIGHT KIDNEY: Normal size. Normal echogenicity. No solid or suspicious masses. No hydronephrosis. No calcifications. PERITONEAL AND RIGHT PLEURAL SPACE: No ascites or effusions. OTHER: No other significant findings. IMPRESSION: NORMAL RIGHT UPPER QUADRANT ULTRASOUND. TECHNICAL DOCUMENTATION: JOB ID: [id number] [employer] All Rights Reserved Reading location - IP/workstation name: [email or web address]
--- NOTE | 2019-01-09 13:32 | ER Document Report ---
ED General - General Chief Complaint: Abdominal Pain Stated Complaint: ABDOMINAL PAIN Time Seen by Provider: 01/09/19 09:55 Mode of Arrival: Ambulatory Notes: 23-year-old female who is a G4, presents emergency department complaining of diffuse abdominal pain that radiates to her back and is worse in the epigastr ium. States is been going on for a few months but has been constant for the past week. States that it it decreases when she bends over but it is still present. Describes it as a intermittently worsening stabbing pain but constant aching pain. Its associated with nausea but no vomiting. The nausea worsens with food. Last menstrual period was over a month ago. States that her period is somewhat late but she does not know how late. Last test that she took was a month ago and it was negative. Admits to having unprotected sex and is not using any form of control. Patient mentions that she had one episode of bloody diarrhea yesterday, states that it was brown and streaked with blood. Never had anything like this before. Has not had anything like this since. TRAVEL OUTSIDE OF THE [place] IN LAST 30 DAYS: No - Related Data Allergies/Adverse Reactions: bupropion HCl [From Wellbutrin] Allergy (Verified 01/09/19 09:36) Seizures Past Medical History - General Information source: Patient - Social History Smoking Status: Current Every Day Smoker Chew tobacco use (# tins/day): No Frequency of alcohol use: None Drug Abuse: None Family History: Reviewed & Not Pertinent Patient has suicidal ideation: No Patient has homicidal ideation: No Renal/ Medical History: Denies: Hx Peritoneal Dialysis GI Medical History: Reports: Hx Gastroesophageal Reflux Disease Psychiatric Medical History: Reports: Hx Depression - Immunizations Immunizations up to date: Yes Hx Diphtheria, Pertussis, Tetanus Vaccination: Yes Review of Systems - Review of Systems Constitutional: No symptoms reported EENT: No symptoms reported Gastrointestinal: See HPI Female Genitourinary: No symptoms reported. denies: Vaginal discharge -: Yes All other systems reviewed and negative Physical Exam - Vital signs Vitals: Temp Pulse Resp BP Pulse Ox 98.3 F 83 16 114/68 99 01/09/19 09:39 01/09/19 09:39 01/09/19 09:39 01/09/19 09:39 01/09/19 09:39 - Notes Notes: GENERAL: Alert, interacts well. No acute distress. HEAD: Normocephalic, atraumatic EYES: Pupils equal, round and reactive to light, extraocular movements intact. ENT: Oral mucosa moist, tongue midline. NECK: Full range of motion, supple, trachea midline. LUNGS: Clear to auscultation bilaterally, no wheezes, rales or rhonchi, no respiratory distress. HEART: Regular rate and rhythm, no murmurs, gallops, rubs. ABDOMEN: Soft, nontender, nondistended, bowel sounds present in all 4 quadrants. EXTREMITIES: Moves all 4 extremities spontaneously, no edema, radial and dorsa lis pedis pulses 2/4 bilaterally. No cyanosis. NEUROLOGICAL: Alert and oriented x3, normal speech. RECTAL: Heme-negative, no hemorrhoids, no fissures. No obvious blood. PSYCH: Normal mood, normal affect. SKIN: Warm, Dry, normal turgor, no rashes or lesions noted. Course - Re-evaluation Re-evalutation: 01/09/19 14:04 CBC unremarkable, CMP grossly unremarkable, hCG is positive, lipase normal, quantitative hCG is 6430. Urinalysis shows ketones but no signs of infection. Hemoccult is negative. Abdominal ultrasound does not show any signs of gallbladder dysfunction. Given the positive test and the abdominal pain patient had a transvaginal ultrasound performed and it says poles were not visualized at this time the 2 gestational sacs were visualized. Patient will be discharged to home, asked to follow-up with [facility] as an outpatient. No evidence of ectopic at this time. - Vital Signs Vital signs: Temp Pulse Resp BP Pulse Ox 98.3 F 83 16 114/68 99 01/09/19 09:39 01/09/19 09:39 01/09/19 09:39 01/09/19 09:39 01/09/19 09:39 - Laboratory Result Diagrams: 01/09/19 10:06 01/09/19 10:06 Laboratory results interpreted by me: 01/09/19 01/09/19 01/09/19 10:06 10:06 10:06 MCH 25.9 L MCHC 31.3 L RDW 15.8 H Chloride 108 H Creatinine 0.43 L AST 11 L Serum HCG, Qual POSITIVE H Beta HCG, Quant 6439.00 H Urine Ketones Urine Urobilinogen Urine Ascorbic Acid 01/09/19 10:06 [facility] RDW Chloride Creatinine AST Serum HCG, Qual Beta HCG, Quant Urine Ketones 20 H Urine Urobilinogen 2.0 H Urine Ascorbic Acid 20 H Discharge - Discharge Clinical Impression: First trimester , Nausea/vomiting in , Chronic generalized abdominal pain Twin Qualifiers: Multiple gestation type: unspecified Trimester: first trimester Qualified Code(s): O30.001 - Twin , unspecified number of placenta and unspecified number of amniotic sacs, first trimester Condition: Stable Disposition: HOME, SELF-CARE Additional Instructions: You are . care is best started as early in as possible. If you're unsure about continuing this , you should discuss this with your physician or with appraisal coordinator at [facility]. You should take only medications approved by your physician. Acetaminophen can safely be taken for minor pains. As a rule, medication for chronic conditions such as asthma or seizures can safely be continued. You should discuss with the physician every medicine you take. Any regular exercise program can be continued. Talk to your physician, however, before engaging in competitive or demanding sports. Alcohol, smoking, and "street drugs" are dangerous to your baby. Cocaine is especially dangerous. Don't use any illicit drugs! Your ultrasound today shows a twin . You will need to follow-up with your [facility] within the next 2 weeks. Please return to the emergency department for any new or concerning symptoms.
--- NOTE | 2019-01-09 14:14 | RADIOLOGY REPORT (SQ) ---
EXAM DESCRIPTION: U/S OB TRANSVAG W/DOPPLER COMPLETED DATE/TIME: 01/09/2019 1:55 pm REASON FOR STUDY: pos preg, abd pain COMPARISON: None. TECHNIQUE: Transvaginal static and realtime grayscale images acquired of the pelvis. Additional arash cted spectral and color Doppler images recorded. All images stored on PACs. CLINICAL AGE: 4 week 3 day. bHC,439. LIMITATIONS: None. FINDINGS: UTERUS: No masses. No anomalies. GESTATIONAL SAC: Twin with two intrauterine gestational sacs. Measurements would correspon d with a 5 week 3 day gestation. YOLK SAC: No. POLE: None present. RIGHT ADNEXA: Normal ovary with normal vascular flow. No adnexal free fluid. 2.9 cm simple cyst. LEFT ADNEXA: Normal ovary with normal vascular flow. No adnexal free fluid. No adnexal masses. FREE FLUID: None. OTHER: No other significant finding. IMPRESSION: POSSIBLE EARLY TWIN INTRAUTERINE . BHCG LEVEL APPROPRIATE FOR ENDOMETRIAL FINDINGS. CONSIDER F/U ULTRASOUND TO CONFIRM NORMAL DEVELOPMENT OF THE FETUSES. Trimester of : First trimester - 0 to 13 weeks. TECHNICAL DOCUMENTATION: JOB ID: [id number] [employer]- All Rights Reserved Reading location - IP/workstation name: [email or web address]
== END 2019-01-09 14:27 | disposition home or self-care (01) ==
LOC: ER 09:19
DX: O30.001 Twin pregnancy, unspecified number of placenta and unspecified number of amniotic sacs, first trimester (principal); O21.9 Vomiting of pregnancy, unspecified; O26.891 Other specified pregnancy related conditions, first trimester; R10.84 Generalized abdominal pain; M54.9 Dorsalgia, unspecified; R19.7 Diarrhea, unspecified; R19.5 Other fecal abnormalities; O99.334 Smoking (tobacco) complicating childbirth; Z3A.01 Less than 8 weeks gestation of pregnancy
CPT/HCPCS: 36415; 76705; 76817; 80053; 81001; 83690; 84702; 84703; 85025; 93976; 99284

== ENCOUNTER 2019-01-16 14:15 | Emergency (ER) | payer SELFPAY ==
--- NOTE | 2019-01-16 15:15 | ER Document Report ---
ED General - General Chief Complaint: Vag Bleeding, +preg <12wks Stated Complaint: VAGINAL BLEEDING Time Seen by Provider: 01/16/19 14:44 Notes: 23-year-old female presents emergency department with chief complaint of vaginal bleeding at 1 PM today. Patient states that she was having some pelvic cramping, did not feel well, and then noticed some spotting. She said it was not heavy and did not pass clots. She says it has resolved. She is wearing a pad and she states that "there is just a little bit" on the pad. Patient states when she provided urinalysis when wiped there was no blood on the toilet paper. This is the first time this is happened. Patient was seen here 1 week ago for abdominal cramping and and had a transvaginal ultrasound which showed a possible twin . Her quantitative beta hCG on 01/09/2019 was 6439. Patient denies any fevers, denies any nausea or vomiting, denies any shortness of breath or chest pain, denies any acute weakness, denies any urinary symptoms. No other complaints TRAVEL OUTSIDE OF THE [place] IN LAST 30 DAYS: No - Related Data Allergies/Adverse Reactions: bupropion HCl [From Wellbutrin] Allergy (Verified 01/16/19 14:16) Seizures Past Medical History - Social History Smoking Status: Unknown if Ever Smoked Family History: Reviewed & Not Pertinent Renal/ Medical History: Denies: Hx Peritoneal Dialysis GI Medical History: Reports: Hx Gastroesophageal Reflux Disease Psychiatric Medical History: Reports: Hx Depression - Immunizations Immunizations up to date: Yes Hx Diphtheria, Pertussis, Tetanus Vaccination: Yes Review of Systems - Review of Systems Constitutional: See HPI EENT: No symptoms reported Cardiovascular: See HPI Respiratory: See HPI Gastrointestinal: See HPI Genitourinary: See HPI Female Genitourinary: See HPI Musculoskeletal: No symptoms reported Skin: No symptoms reported Hematologic/Lymphatic: No symptoms reported Neurological/Psychological: No symptoms reported Physical Exam - Vital signs Vitals: Temp Pulse Resp BP Pulse Ox 98.7 F 101 H 20 103/61 99 01/16/19 14:20 01/16/19 14:20 01/16/19 14:20 01/16/19 14:20 01/16/19 14:20 - Notes Notes: PHYSICAL EXAMINATION: Reviewed vital signs and charting by RN GENERAL: Alert, interacts well. No acute distress. HEAD: Normocephalic, atraumatic. EYES: Pupils equal and round. Extraocular movements intact. ENT: Oral mucosa moist, tongue midline. NECK: Full range of motion. Trachea midline. LUNGS: Clear to auscultation bilaterally, no wheezes, rales, or rhonchi. No respiratory distress. HEART: Regular rate and rhythm. No murmur ABDOMEN: soft, mild suprapubic tenderness to palpation. No distention. Bowel sounds present EXTREMITIES: Moves all 4 extremities spontaneously. No edema, No cyanosis. PSYCH: Normal affect, normal mood. SKIN: Warm, dry, normal turgor. No rashes or lesions noted. Course - Re-evaluation Re-evalutation: 01/16/19 15:17 Patient seen here 1 week ago and transvaginal ultrasound showed probable twin with 2 intrauterine sacs present. Beta hCG 1 week ago 6439. Patient will get a transvaginal ultrasound and lab work today. 01/16/19 16:25 Ultrasound completed which showed treatment with baby A heart rate 101 baby B heart rate 110. Beta hCG 44,000 approximately. Plan is to have patient follow-up with [facility] on Friday morning. At this time her vital signs are stable she is in no acute distress. She is stable for discharge with close follow-up. 01/16/19 16:26 Transvaginal US 01/16/19 15:08 IMPRESSION: 1. Twin intrauterine gestation at sonographic gestational age of 6 weeks, 1 day. heart rate Baby A 101 BPM, baby B 110 BPM. 2. Subchorionic hemorrhage in the superior uterine fundus measuring 2.0 x 1.6 x 1.5 cm. Attention on follow-up. Trimester of : First trimester - 0 to 13 weeks. Labs- Entire Visit 01/16/19 01/16/19 01/16/19 14:48 14:48 14:48 WBC 5.2 RBC 4.45 Hgb 11.6 L Hct 35.7 L MCV 80 MCH 26.0 L MCHC 32.5 RDW 15.2 H Plt Count 293 Seg Neutrophils % 60.5 Lymphocytes % 27.3 Monocytes % 4.8 Eosinophils % 6.8 H Basophils % 0.6 Absolute Neutrophils 3.2 Absolute Lymphocytes 1.4 Absolute Monocytes 0.2 Absolute Eosinophils 0.4 Absolute Basophils 0.0 Sodium 134.6 L Potassium 4.4 Chloride 106 Carbon Dioxide 21 L Anion Gap 8 BUN 9 Creatinine 0.45 L Est GFR ( Amer) > 60 Est GFR (Non-Af Amer) > 60 Glucose 83 Calcium 9.1 Total Bilirubin 0.3 Direct Bilirubin 0.2 Neonat Total Bilirubin Not Reportable Neonat Direct Bilirubin Not Reportable Neonat Indirect Bili Not Reportable AST 11 L ALT 8 Alkaline Phosphatase 39 Total Protein 6.9 Albumin 4.1 Beta HCG, Quant 71935.00 H Total Beta HCG POSITIVE Urine Color YELLOW Urine Appearance CLOUDY Urine pH 6.0 Ur Specific [place] 1.025 Urine Protein NEGATIVE Urine Glucose (UA) NEGATIVE Urine Ketones NEGATIVE Urine Blood LARGE H Urine Nitrite NEGATIVE Urine Bilirubin NEGATIVE Urine Urobilinogen 2.0 H Ur Leukocyte Esterase TRACE H Urine WBC (Auto) 4 Urine RBC (Auto) 4 Urine Bacteria (Auto) TRACE Squamous Epi Cells Auto 24 Urine Mucus (Auto) FEW Urine Ascorbic Acid NEGATIVE - Vital Signs Vital signs: Temp Pulse Resp BP Pulse Ox 98.7 F 101 H 20 103/61 99 01/16/19 14:20 01/16/19 14:20 01/16/19 14:20 01/16/19 14:20 01/16/19 14:20 - Laboratory Result Diagrams: 01/16/19 14:48 01/16/19 14:48 Laboratory results interpreted by me: 01/16/19 01/16/19 01/16/19 14:48 14:48 14:48 Hgb 11.6 L Hct 35.7 L MCH 26.0 L RDW 15.2 H Eosinophils % 6.8 H Sodium 134.6 L Carbon Dioxide 21 L Creatinine 0.45 L AST 11 L Beta HCG, Quant 56539.00 H Urine Blood LARGE H Urine Urobilinogen 2.0 H Ur Leukocyte Esterase TRACE H Discharge - Discharge Clinical Impression: Twin in first trimester Qualifiers: Multiple gestation type: unspecified Qualified Code(s): O30.001 - Twin , unspecified number of placenta and unspecified number of amniotic sacs, first trimester Subchorionic hemorrhage in first trimester Qualifiers: Fetus number: fetus 2 of multiple gestation Qualified Code(s): O41.8X12 - Other specified disorders of amniotic fluid and membranes, first trimester, fetus 2; O46.8X1 - Other antepartum hemorrhage, first trimester Condition: Good Disposition: HOME, SELF-CARE Additional Instructions: You were seen in the emergency department this afternoon for vaginal bleeding. The ultrasound shows that you do have a live twin pregnancies with heart rates. It also show that you have something called a subchorionic bleed. This probably explains her bleeding. There is a slightly increased risk when women have subchorionic bleeds for early miscarriage. As such, I am referring you to [facility] and I want you to call them on Friday at 9 AM to arrange follow-up. If you continue to have persistent heavy vaginal bleeding, become acutely dizzy or lightheaded with bleeding, passout, or have severe intractable abdominal pain please immediately return to the emergency department for reevaluation. Referrals: KEREN LAU MD [[facility]] - 01/18/19 9:00 am
[2019-01-16 15:22] LABS: ABSOLUTE EOSINOPHILS # (AUTO) 0.4 10^3/uL (0.0-0.6); ABSOLUTE LYMPHOCYTES (AUTO) 1.4 10^3/uL (0.5-4.7); ABSOLUTE MONOCYTES (AUTO) 0.2 10^3/uL (0.1-1.4); ABSOLUTE NEUT (AUTO) 3.2 10^3/uL (1.7-8.2); BASOPHILS % (AUTO) 0.6 % (0-2); EOSINOPHILS % (AUTO) 6.8 % (0-6); HEMATOCRIT 35.7 % (36.0-47.0); HEMOGLOBIN 11.6 g/dL (12.0-15.5); LYMPHOCYTES % (AUTO) 27.3 % (13-45); MEAN CORPUSCULAR HGB CONC 32.5 g/dL (32.0-36.0); MEAN CORPUSCULAR VOLUME 80 fl (80-97); MONOCYTES % (AUTO) 4.8 % (3-13); PLATELET COUNT 293 10^3/uL (150-450); RED BLOOD COUNT 4.45 10^6/uL (3.72-5.28); RED CELL DISTRIBUTION WIDTH 15.2 % (11.5-14.0); SEGMENTED NEUTROPHILS % (AUTO) 60.5 % (42-78); TOTAL CELLS COUNTED % (AUTO) 100 %; WHITE BLOOD COUNT 5.2 10^3/uL (4.0-10.5)
[2019-01-16 15:29] LABS: APPEARANCE,URINE CLOUDY; BILIRUBIN,URINE NEGATIVE (NEGATIVE); COLOR,URINE YELLOW; GLUCOSE, URINE NEGATIVE (NEGATIVE); KETONES,URINE NEGATIVE (NEGATIVE); LEUKOCYTE ESTERASE,URINE TRACE (NEGATIVE); NITRITE,URINE NEGATIVE (NEGATIVE); PROTEIN,URINE NEGATIVE (NEGATIVE); URINE SPECIFIC GRAVITY 1.025
[2019-01-16 15:34] LABS: ALBUMIN 4.1 g/dL (3.5-5.0); ALKALINE PHOSPHATASE 39 U/L (38-126); ANION GAP 8 (5-19); ASPARTATE AMINO TRANSFERASE 11 U/L (14-36); BILIRUBIN,DIRECT 0.2 mg/dL (0.0-0.4); BILIRUBIN,TOTAL 0.3 mg/dL (0.2-1.3); BLOOD UREA NITROGEN 9 mg/dL (7-20); CALCIUM 9.1 mg/dL (8.4-10.2); CARBON DIOXIDE 21 mmol/L (22-30); CHLORIDE 106 mmol/L (98-107); GLUCOSE 83 mg/dL (75-110); POTASSIUM 4.4 mmol/L (3.6-5.0); TOTAL PROTEIN 6.9 g/dL (6.3-8.2)
--- NOTE | 2019-01-16 16:16 | RADIOLOGY REPORT (SQ) ---
EXAM DESCRIPTION: U/S OB TRANSVAG W/DOPPLER COMPLETED DATE/TIME: 01/16/2019 3:57 pm REASON FOR STUDY: vaginal bleeding + COMPARISON: None. TECHNIQUE: Transvaginal static and realtime grayscale images acquired of the pelvis. Additional arash cted spectral and color Doppler images recorded. All images stored on PACs. bHCG: Not available. CLINICAL DATES: 6 weeks, 3 days LIMITATIONS: None. FINDINGS: FETUS: Single Living intrauterine . ULTRASOUND EGA: 6 weeks, 1 day ULTRASOUND KAUSHAL: 09/06/2019 EFW: Not applicable less than 20 weeks. CRL: Baby A 0.5 cm, baby B 0.5 cm FHR: Baby A 101 BPM, baby B 110 BPM SUBCHORIONIC BLEED: Subchorionic hemorrhage in the superior uterine fundus measuring 2.0 x 1.6 x 1.5 cm UTERUS: No masses. No anomalies. CERVICAL LENGTH: 2.9 cm Closed. RIGHT ADNEXA: Normal ovary with normal vascular flow. Simple cyst measuring 3.0 cm No adnexal free fluid. No adnexal masses. LEFT ADNEXA: Normal ovary with normal vascular flow. No adnexal free fluid. No adnexal masses. FREE FLUID: None. OTHER: No other significant finding. IMPRESSION: 1. Twin intrauterine gestation at sonographic gestational age of 6 weeks, 1 day. heart rate Baby A 101 BPM, baby B 110 BPM. 2. Subchorionic hemorrhage in the superior uterine fundus measuring 2.0 x 1.6 x 1.5 cm. Attention on follow-up. Trimester of : First trimester - 0 to 13 weeks. TECHNICAL DOCUMENTATION: JOB ID: [id number] [employer]- All Rights Reserved rev-10/24 Reading location - IP/workstation name: [email or web address]
[2019-01-16 16:55] VITALS: BP 104/61
== END 2019-01-16 16:56 | disposition home or self-care (01) ==
LOC: ER 14:15
DX: O20.9 Hemorrhage in early pregnancy, unspecified (principal); O30.001 Twin pregnancy, unspecified number of placenta and unspecified number of amniotic sacs, first trimester; Z3A.01 Less than 8 weeks gestation of pregnancy
CPT/HCPCS: 36415; 76817; 80053; 81001; 84702; 85025; 87086; 93976; 99284

== ENCOUNTER 2019-05-22 21:14 | Emergency (ER) | payer MEDICAID ==
[2019-05-22 21:25] VITALS: BP 109/72
[2019-05-22] MEDS ORDERED: MAG HYDROX/AL HYDROX/SIMETH SUSP 30 ML UDCUP PO ONE (21:29)
[2019-05-22] MEDS ORDERED: METOCLOPRAMIDE HCL ORAL SOLN 10 MG/10 ML UDCUP PO ONE (21:29)
--- NOTE | 2019-05-22 21:32 | ER Document Report ---
ED Medical Screen (RME) - General Chief Complaint: Abdominal Pain Stated Complaint: ABDOMINAL PAIN Time Seen by Provider: 05/22/19 21:24 Mode of Arrival: Medic Information source: Patient Notes: This 23-year-old female G3, P2 approximately 23 weeks presents emergency department with epigastric pain. Reports she has had reflux the entire . Reports she takes Pepcid it usually takes away the pain. For last couple weeks has not stopped the pain. She reports it feels like a sharp pain into the middle of her chest. Denies recent trip. No complaints of fever vomiting diarrhea. Denies lower abdominal pain. Reports she has abdominal cramping every now and then but no cramps now. Denies vaginal pain denies vaginal bleeding vaginal discharge. I have greeted and performed a rapid initial assessment of this patient. A comprehensive ED assessment and evaluation of the patient, analysis of test results and completion of the medical decision making process will be conducted by additional ED providers. Dictation of this chart was performed using voice recognition software; therefore, there may be some unintended grammatical errors. TRAVEL OUTSIDE OF THE [place] IN LAST 30 DAYS: No - Related Data Allergies/Adverse Reactions: bupropion HCl [From Wellbutrin] Allergy (Verified 01/16/19 14:16) Seizures Past Medical History - Social History Family history: None Renal/ Medical History: Denies: Hx Peritoneal Dialysis GI Medical History: Reports: Hx Gastroesophageal Reflux Disease Psychiatric Medical History: Reports: Hx Depression - Immunizations Immunizations up to date: Yes Hx Diphtheria, Pertussis, Tetanus Vaccination: Yes Physical Exam - Vital signs Vitals: Temp Pulse Resp BP Pulse Ox 97.8 F 92 18 109/72 98 05/22/19 21:23 05/22/19 21:23 05/22/19 21:23 05/22/19 21:23 05/22/19 21:23 Course - Vital Signs Vital signs: Temp Pulse Resp BP Pulse Ox 97.8 F 92 18 109/72 98 05/22/19 21:23 05/22/19 21:23 05/22/19 21:23 05/22/19 21:23 05/22/19 21:23
[2019-05-22 22:24] LABS: ABSOLUTE EOSINOPHILS # (AUTO) 0.4 10^3/uL (0.0-0.6); ABSOLUTE LYMPHOCYTES (AUTO) 2.3 10^3/uL (0.5-4.7); ABSOLUTE MONOCYTES (AUTO) 0.6 10^3/uL (0.1-1.4); ABSOLUTE NEUT (AUTO) 6.1 10^3/uL (1.7-8.2); BASOPHILS % (AUTO) 0.2 % (0-2); HEMATOCRIT 31.6 % (36.0-47.0); HEMOGLOBIN 10.4 g/dL (12.0-15.5); LYMPHOCYTES % (AUTO) 24.2 % (13-45); MEAN CORPUSCULAR HEMOGLOBIN 27.5 pg (27.0-33.4); MEAN CORPUSCULAR VOLUME 84 fl (80-97); MONOCYTES % (AUTO) 6.2 % (3-13); PLATELET COUNT 299 10^3/uL (150-450); RED BLOOD COUNT 3.79 10^6/uL (3.72-5.28); RED CELL DISTRIBUTION WIDTH 14.3 % (11.5-14.0); SEGMENTED NEUTROPHILS % (AUTO) 65.4 % (42-78); TOTAL CELLS COUNTED % (AUTO) 100 %; WHITE BLOOD COUNT 9.3 10^3/uL (4.0-10.5)
[2019-05-22 22:38] LABS: ALBUMIN 3.6 g/dL (3.5-5.0); ALKALINE PHOSPHATASE 86 U/L (38-126); ANION GAP 9 (5-19); ASPARTATE AMINO TRANSFERASE 14 U/L (14-36); BILIRUBIN,DIRECT 0.1 mg/dL (0.0-0.4); BILIRUBIN,TOTAL 0.4 mg/dL (0.2-1.3); BLOOD UREA NITROGEN 7 mg/dL (7-20); CALCIUM 8.9 mg/dL (8.4-10.2); CARBON DIOXIDE 22 mmol/L (22-30); CHLORIDE 105 mmol/L (98-107); GLUCOSE 75 mg/dL (75-110); POTASSIUM 3.5 mmol/L (3.6-5.0); TOTAL PROTEIN 6.9 g/dL (6.3-8.2)
--- NOTE | 2019-05-22 22:54 | RADIOLOGY REPORT (SQ) ---
EXAM DESCRIPTION: XR CHEST 2 VIEWS COMPLETED DATE/TME: 05/22/2019 21:29 CLINICAL HISTORY: 23 years, Female, chest pain 23 weeks preg COMPARISON: 10/19/2015 chest NUMBER OF VIEWS: 2 TECHNIQUE: 2 views of the chest LIMITATIONS: None. FINDINGS: The heart size is normal. Lungs are clear. No pneumothorax IMPRESSION: Negative chest copyright 2010 [facility] [employer]- All Rights Reserved
--- NOTE | 2019-05-23 00:07 | EKG REPORT ---
SEVERITY:- NORMAL ECG - SINUS RHYTHM : Confirmed by: Thuan Hernandez MD 23-May-2019 00:06:09
== END 2019-05-23 02:35 | disposition left against medical advice (07) ==
LOC: ER 21:14
DX: O99.619 Diseases of the digestive system complicating pregnancy, unspecified trimester (principal); K21.9 Gastro-esophageal reflux disease without esophagitis; Z79.899 Other long term (current) drug therapy; O26.899 Other specified pregnancy related conditions, unspecified trimester; R10.13 Epigastric pain; Z3A.00 Weeks of gestation of pregnancy not specified; Z53.20 Procedure and treatment not carried out because of patient's decision for unspecified reasons; Z88.8 Allergy status to other drugs, medicaments and biological substances
CPT/HCPCS: 93005; 36415; 85025; 80053; 71046; 93010; J3490 ×2; 99281

== ENCOUNTER 2019-07-20 11:19 | Outpatient (CLI) | payer MEDICAID ==
--- NOTE | 2019-07-20 12:44 | Non Stress Test Report ---
Non Stress Test Datetime Report Generated by CPN: 07/20/2019 12:43 DEMOGRAPHIC EGA NST: 32.4 VITAL SIGNS Temperature - NST: 97.8 Pulse - NST: 86 RESP - NST: 16 NBPSYS NST: 104 NBPDIA NST: 67 MONITORING Monitor Explained: Monitor Explained; Test Explained; Patient Verbalized Understanding; Other Time on Monitor: 07/20/2019 12:02 Time off Monitor: 07/20/2019 12:25 NST Duration: 23 NST INTERVENTIONS NST Interventions: PO Hydration Physician Notified NST: Dr Kendall BABY A: [id number] BABY A Movement : Present Contraction Frequency : none FHR Baseline : 145 Accelerations : 15X15 Decelerations : None Variability : Moderate 6-25bpm NST Review: Meets Criteria for Reactive NST NST Review and Verified By : Aleah Baker RN NST Results: Reactive BABY B Movement: Present FHR Baseline: 135 Accelerations: 15X15 Decelerations: None Variability: Moderate 6-25bpm NST Review: Meets Criteria for Reactive NST NST Reviewed And Verified By: C. [place] RN NST Results: Reactive NST COMMENTS NST Comments: MD on unit reviewing FHT strips NST REPORT Report Trigger: Send Report
== END 2019-07-20 12:37 | disposition home or self-care (01) ==
LOC: LC 11:19
PROVIDERS: ATTEND Obstetrics & Gynecology
PROC: 4A1HXCZ Monitoring of Products of Conception, Cardiac Rate, External Approach (ICD-10-PCS; principal; 2019-07-20)
DX: O30.043 Twin pregnancy, dichorionic/diamniotic, third trimester (principal); Z3A.32 32 weeks gestation of pregnancy
CPT/HCPCS: 59025

== ENCOUNTER 2019-08-01 12:24 | Inpatient (IN) | payer MEDICAID ==
[2019-08-01] MEDS ORDERED: PENICILLIN G-K 5 MILLION UNIT VIAL ONE (12:51)
[2019-08-01] MEDS ORDERED: RINGERS SOLUTION,LACTATED 1,000 ML IV ONE (12:52)
[2019-08-01] MEDS ORDERED: PENICILLIN G POTASSIUM 5,000,000 UNIT in DEXTROSE 5%-WATER 100 ML IV ONE ×2 (12:52→12:53)
--- NOTE | 2019-08-01 12:52 | Admission Physical ---
Datetime Report Generated by CPN: 08/01/2019 12:52 CURRENT ADMISSION Chief Complaint: Uterine Contractions Indication for Induction: Not Applicable Admit Impression : , Intrauterine ; Active Labor Admit Plan: Admit to Unit ALLERGIES Medication Allergies: bupropion HCl/Seizures (07/20/2019) OBSTETRICAL HISTORY EDC: 09/10/2019 00:00 : 4 Para: 2 PHYSICAL EXAM General: Normal HEENT: Normal Neurologic: Normal Thyroid: Normal Heart: Normal Lungs: Normal Breast: Normal Back: Normal Abdomen: Normal Genitourinary Exam: Normal Extremities: Normal DTRs: Normal Pelvic Type: Adequate Vital Signs: Reviewed VAGINAL EXAM Dilatation: 5 Effacement: 90 Station: 0 MEMBRANES Pooling: Negative Membranes: Intact FETUS A EGA: 34.2 FHR- Baseline: 130 Variability: Moderate 6-25bpm Decelerations: None FHR Category: Category I Presentation: Vertex Admit Comment: Twins anticipate delivery INFORMED CONSENT Signature: with User ID: [email or web address]
[2019-08-01] MEDS ORDERED: RINGERS SOLUTION,LACTATED 1,000 ML IV PRN ×2 (12:53→15:09)
[2019-08-01 13:34] LABS: ABSOLUTE EOSINOPHILS # (AUTO) 0.1 10^3/uL (0.0-0.6); ABSOLUTE LYMPHOCYTES (AUTO) 1.7 10^3/uL (0.5-4.7); ABSOLUTE MONOCYTES (AUTO) 0.4 10^3/uL (0.1-1.4); ABSOLUTE NEUT (AUTO) 6.9 10^3/uL (1.7-8.2); BASOPHILS % (AUTO) 0.5 % (0-2); HEMATOCRIT 32.1 % (36.0-47.0); HEMOGLOBIN 10.5 g/dL (12.0-15.5); LYMPHOCYTES % (AUTO) 18.2 % (13-45); MEAN CORPUSCULAR HEMOGLOBIN 26.3 pg (27.0-33.4); MEAN CORPUSCULAR HGB CONC 32.7 g/dL (32.0-36.0); MEAN CORPUSCULAR VOLUME 81 fl (80-97); MONOCYTES % (AUTO) 4.9 % (3-13); PLATELET COUNT 334 10^3/uL (150-450); RED BLOOD COUNT 3.99 10^6/uL (3.72-5.28); RED CELL DISTRIBUTION WIDTH 15.9 % (11.5-14.0); SEGMENTED NEUTROPHILS % (AUTO) 75.4 % (42-78); TOTAL CELLS COUNTED % (AUTO) 100 %; WHITE BLOOD COUNT 9.1 10^3/uL (4.0-10.5)
[2019-08-01] MEDS ORDERED: OXYTOCIN 10 UNIT/ML VIAL ONE ×2 (13:42→14:17)
[2019-08-01] MEDS ORDERED: MISOPROSTOL 0.2 MG TABLET ONE (13:43)
[2019-08-01] MEDS ORDERED: LIDOCAINE 1% INJ-PF (10 MG/ML) 30 ML SDV ONE (13:43)
[2019-08-01] MEDS ORDERED: OXYTOCIN/NORMAL SALINE 20 UNIT/1,000 ML RTUINJ ONE ×2 (13:43→14:17)
[2019-08-01] MEDS ORDERED: CEFAZOLIN 1 GM/D5W RTU 2 GM/100 ML RTUPB IV ONE (14:16)
[2019-08-01] MEDS ORDERED: FENTANYL CITRATE INJ/PF 100 MCG/2 ML AMPUL ONE (14:17)
[2019-08-01] MEDS ORDERED: EPHEDRINE SULFATE INJ 50 MG/1 ML AMPULE ONE (14:17)
[2019-08-01] MEDS ORDERED: KETOROLAC TROMETHAMINE INJ/PF 30 MG/1 ML SDV ONE (14:17)
[2019-08-01] MEDS ORDERED: MIDAZOLAM 2 MG/2 ML INJ ONE (14:17)
[2019-08-01] MEDS ORDERED: ONDANSETRON HCL INJ/PF 4 MG/2 ML SDV ONE (14:18)
[2019-08-01] MEDS ORDERED: ACETAMINOPHEN 1,000 MG/100 ML RTUPB IV ONE (14:18)
[2019-08-01] MEDS ORDERED: HYDROMORPHONE HCL INJ/PF 2 MG/ML AMPULE ONE (14:43)
[2019-08-01] MEDS ORDERED: PROMETHAZINE HCL INJ 25 MG/1 ML VIAL IV PRN (15:09)
[2019-08-01] MEDS ORDERED: OXYCODONE-ACETAMINOPHEN 5-325 MG TABLET PO PRN (15:09)
[2019-08-01] MEDS ORDERED: DIPH/PERTUSS(ACELL)/TETANUS VAC/PF 0.5 ML SYR (>=10YO) IM PRN (15:09)
[2019-08-01] MEDS ORDERED: ACETAMINOPHEN 1,000 MG/100 ML RTUPB IV PRN (15:09)
[2019-08-01] MEDS ORDERED: ACETAMINOPHEN 325 MG TABLET PO PRN (15:09)
[2019-08-01] MEDS ORDERED: MEASLES,MUMPS&RUBELLA VACC/PF 0.5 ML VIAL SUBCUT PRN (15:09)
[2019-08-01] MEDS ORDERED: OXYTOCIN/NORMAL SALINE 20 UNIT/1,000 ML RTUINJ IV PRN (15:09)
--- NOTE | 2019-08-01 15:20 | Operative Report ---
Operative Report DATE OF SURGERY: 08/01/19 PREOPERATIVE DIAGNOSIS: Second twin with transverse lie after delivery of the f irst twin and desires surgical sterilization POSTOPERATIVE DIAGNOSIS: Same OPERATION: Primary via low transverse uterine incision and a tubal ligation using Filshie clips SURGEON: ZEENAT CASTELLANOS ANESTHESIA: GA TISSUE REMOVED OR ALTERED: Placenta COMPLICATIONS: None ESTIMATED BLOOD LOSS: 250 cc INTRAOPERATIVE FINDINGS: Normal uterus tubes and ovaries twin B with a transverse lie PROCEDURE: The patient delivered a first twin and the second twin turned transverse. I was unable to turn the head into the pelvis. There was no presenting part palpable through the membranes on exam and the patient did not have an epidural for relaxation. She was also very anxious. For this reason for the safety of the baby we proceeded with a delivery. Patient was taken to the OR and placed in supine position. She is prepared and draped in sterile fashion. Bolton was placed for drainage of the bladder. General anesthesia was induced. Low transverse incision was made and carried down the level of the fascia. The fascial incision was made with knife and extended bilaterally with curved Jackson scissors. The fascia was off the rectus muscles using sharp and blunt dissection. The rectus muscles are in the midline. The peritoneum was entered without incident. Bladder blade was placed in uterine segment was identified. A low transverse incision was made creating a bladder flap. Bladder blade was placed low transverse uterine incision was made with the knife and extended with fingertips. The baby was delivered with some fundal pressure in a breech fashion. Mouth and nose were suctioned free. The cord is doubly clamped and cut. Baby is passed off to the director market intelligence in attendance. The placenta was manually extracted with trailing membranes. The uterus was externalized wrapped in a moist lap sponge. Uterine contents wiped free. Uterus was closed with a running locking layer of 0 chromic suture using the second layer to imbricate the first completing a double layer closure of the uterus. The serosa was closed with a running 2-0 chromic stitch. A Filshie clip was placed across the mid isthmic portion of each fallopian tube. The pelvis was irrigated and suctioned free of fluid the uterus was replaced in the abdomen. The abdominal wall peritoneum was closed with running 2-0 chromic stitch. Fascia was closed with a running 0 Vicryl in 2 segments. Arnol's layer was brought together with 0 plain gut stitch and the skin was closed with running subcuticular 4-0 undyed Vicryl stitch. The wound was dressed mother and baby did well.
[2019-08-01] MEDS ORDERED: PROPOFOL INJ 200 MG/20 ML VIAL IV ONE (15:29)
[2019-08-01] MEDS ORDERED: MORPHINE SULFATE 10 MG/ML INJ ONE ×2 (15:33→16:59)
[2019-08-01] MEDS ORDERED: PENICILLIN G POTASSIUM 2,500,000 UNIT in DEXTROSE 5%-WATER 50 ML IV SCH (16:53)
[2019-08-01] MEDS ORDERED: INFLUENZA QUAD (6MOS+) 2019-20 VAC 0.5 ML SYR IM ONE (18:29)
[2019-08-01] MEDS: PENICILLIN G POTASSIUM 2,500,000 UNIT in DEXTROSE 5%-WATER 50 ML IV SCH ×2 (18:33→23:57)
--- NOTE | 2019-08-01 18:44 | Delivery Summary ---
Del Sum A-C Datetime Report Generated by CPN: 08/01/2019 18:44 DELIVERY PERSONNEL DELIVERY PERSONNEL: [id number] Delivery Doctor:: Alesha Valles MD Nurse Fitness Studies Teacher Certified:: Felipa Ireland CNM Anesthesiologist:: Shadia Escobar MD FLOAT PHLEBOTOMIST:: Carlitos Chow CRNA Labor and Delivery Nurse:: Prudence Rodrigez RNdeputy administrator Nurse:: LEODAN Angel [employer] Teacher:: Prudence Rodrigez RN Corporate Pilot:: Dr. Colleen Mathur Nursery Nurse:: Paris Herbert RN Nursery Nurse:: REG [place] [employer] Economics Teacher/DIRECTOR OPERATIONS: ST Cait[facility] [employer] Economics Teacher/DIRECTOR OPERATIONS: Laura Varner CST Additional Personnel: : Maryann Borrego RN/ Chantel Tovar RN MATERNAL INFORMATION Delivery Anesthesia: General Medications After Delivery: Other-Please Comment Meds After Delivery Comment: See Anesthesia record Delivery QBL: 624 Maternal Complications: Other Complication Details: twin gestation Provider Comments: Twins verified vertex/vertex on arrival to Kimberly Valles at bedside just prior to over intact perineum quickly after AROM. Mother screaming and without good control, was expulsed quickly, cord clamp and cut per Dr. Valles. Cord blood collected. Sono at Bedside per Dr. Valles, Twin B rotated to transverse and then breech, membranes intact. Pt then transported to OR for stat CS. LABOR SUMMARY EDC: 09/10/2019 00:00 No. Babies in Womb: 2 Attempted: No Labor Anesthesia: None LABOR INFORMATION Reason for Induction: Not Applicable Onset of Labor: 08/01/2019 10:20 Complete Dilatation: 08/01/2019 14:01 Oxytocin: N/A Group B Beta Strep: unknown Antibiotics # of Doses: 1 Antibiotics Time of Last Dose: 1256 Name of Antibiotic Given: PCN Steroids Given: None Reason Steroids Not Administered: Not Applicable MEMBRANES Membranes Rupture Method: Artificial Rupture of Membranes: 08/01/2019 14:03 Length of Rupture (hr): 0.03 Amniotic Fluid Color: Clear Amniotic Fluid Amount: Moderate Amniotic Fluid Odor: Normal STAGES OF LABOR Stage 1 hr: 3 Stage 1 min: 41 Stage 2 hr: 0 Stage 2 min: 4 Stage 3 hr: 0 Stage 3 min: 0 Total Time in Labor hr: 3 Total Time in Labor min: 45 VAGINAL DELIVERY Episiotomy: None Laceration #1: None Laceration Extension #1: N/A Laceration #2: None Laceration Extension #2: N/A Laceration Repair: Not Applicable Sponge Count Correct: Yes Sharps Count Correct: Yes CSECTION DELIVERY Primary Indication: Breech Presentation Other Primary Indication: Twin B Secondary Indication: Multiple Gestation CSection Urgency: Emergency CSection Incidence: Primary Labor: Labor Elective: Nonelective CSection Incision: Lower Uterine Transverse Other Sterilization Procedure: filshey Uterine Closure: Double-layer closure BABY A INFORMATION Infant Delivery Date/Time: 08/01/2019 14:05 Method of Delivery: Vaginal Nurse Controlled Delivery: No Born in Route : No : N/A Forceps: N/A Vacuum Extraction: N/A Shoulder Dystocia : No PRESENTATION/POSITION BABY A Presentation: Cephalic Cephalic Presentation: Vertex Breech Presentation: N/A PLACENTA INFORMATION BABY A Placenta Delivery Time : 08/01/2019 14:05 Placenta Method of Delivery: Spontaneous Placenta Status: Delivered SCORES BABY A Heart Rate 1 min: >100 bpm Resp Effort 1 min: Good Cry Reflex Irritability 1 min: Cough or Sneeze or Pulls Away Muscle Tone 1 min: Active Motion Color 1 min: Blue/Pale Resuscitation Effort 1 min: Tactile Stimulation SCORE 1 MIN: 8 Heart Rate 5 min: >100 bpm Resp Effort 5 min: Good Cry Reflex Irritability 5 min: Cough or Sneeze or Pulls Away Muscle Tone 5 min: Active Motion Color 5 min: Body [place], Extremities Blue SCORE 5 MIN: 9 INFORMATION BABY A Gestational Age at Delivery: 34.2 Gestational Status: Late - 34- 36.6 Weeks Infant Outcome : Liveborn Condition : Stable Sex: Male IDENTIFICATION BABY A Verification Date/Time: 08/01/2019 15:55 ID Band Number: [id number] Mother's Name Verified: Yes Infant RN Verifying Infant: B Baidy RN Additional Verifying Personnel: M Telly RN WEIGHT/LENGTH BABY A Birthweight (gm): 1404 Infant Weight (lb): 3 Infant Weight (oz): 2 Infant Length (in): 16.50 Length (cm): 41.91 CORD INFORMATION BABY A No. Cord Vessels: 3 Nuchal Cord : N/A Cord Blood Taken: Yes-For Storage (Mom's Blood type +) Suction: None ASSESSMENT BABY A Complications: None Physical Findings at Delivery: Within Normal Limits Infant Respirations: Appears Normal Corporate Pilot/ALS Called : Yes Infant Care By: see delivery summary Transferred To: NICU BABY B INFORMATION Infant Delivery Date/Time: 08/01/2019 14:29 Method of Delivery : Nurse Controlled Delivery: No Born in Route : No : N/A Forceps : N/A Vacuum Extraction: N/A Shoulder Dystocia : No SHOULDER DYSTOCIA BABY B Delivery Date/Time: 08/01/2019 14:29 PRESENTATION/POSITION BABY B Presentation : Breech Breech Position: Complete ROM/PLACENTA INFO BABY B Rupture of Membranes: 08/01/2019 14:29 Length of Rupture (hr): 0.00 Placenta Delivery Time : 08/01/2019 14:30 Placenta Method of Delivery: Manual Removal Placental Status : Delivered SCORES BABY B Heart Rate 1 min: >100 bpm Resp Effort 1 min: Slow, Irregular Reflex Irritability 1 min: Cough or Sneeze or Pulls Away Muscle Tone 1 min: Some Flexion of Extremities Color 1 min: Body [place], Extremities Blue Resuscitation Effort 1 min: Tactile Stimulation SCORE 1 MIN: 7 Heart Rate 5 min: >100 bpm Resp Effort 5 min: Good Cry Reflex Irritability 5 min: Cough or Sneeze or Pulls Away Muscle Tone 5 min: Active Motion Color 5 min: Body [place], Extremities Blue SCORE 5 MIN: 9 INFORMATION BABY B Gestational Age at Delivery: 34.2 Gestational Status : Late - 34- 36.6 Weeks Outcome : Liveborn Condition : Stable Infant Sex : Female IDENTIFICATION BABY B Infant Verification Date/Time: 08/01/2019 15:59 ID Band Number : [id number] Mother's Name Verified: Yes Infant RN Verifying : B Baidy RN Additional Verifying Personnel: Sunni Gravesge RN WEIGHT/LENGTH BABY B Birthweight (gm): 1750 Weight (lb) : 3 Weight (oz): 14 Infant Length (in): 17.00 Length (cm): 43.18 CORD INFORMATION BABY B No. Cord Vessels : 3 Nuchal Cord : N/A Cord Blood Taken : Yes-For Storage (Mom's Blood Type +) Suction : None ASSESSMENT BABY B Complications : None Physical Findings at Delivery: Within Normal Limits Infant Respirations : Appears Normal Skin to Skin: No Care By : see delivery record Transfer To: NICU SIGNATURES Assignment: Alesha Valles MD Signature: with User ID: [email or web address] : with User ID: [email or web address] : I was personally available for consultation and serving as supervising physician for the MLP.
[2019-08-01] MEDS: HYDROMORPHONE HCL INJ/PF 2 MG/ML AMPULE IV PRN (19:46)
[2019-08-01] MEDS: DOCUSATE SODIUM 100 MG CAPSULE PO SCH (20:01)
[2019-08-01] MEDS ORDERED: KETOROLAC TROMETHAMINE INJ/PF 30 MG/1 ML SDV IV SCH (22:00)
[2019-08-01] MEDS: RINGERS SOLUTION,LACTATED 1,000 ML IV PRN (23:03)
[2019-08-02] MEDS: HYDROMORPHONE HCL INJ/PF 2 MG/ML AMPULE IV PRN (01:16)
[2019-08-02] MEDS: OXYCODONE-ACETAMINOPHEN 5-325 MG TABLET PO PRN ×3 (02:50→19:47)
[2019-08-02] MEDS: RINGERS SOLUTION,LACTATED 1,000 ML IV PRN (02:51)
[2019-08-02] MEDS: IBUPROFEN 800 MG TABLET PO SCH ×3 (05:41→17:32)
[2019-08-02 07:23] LABS: HEMATOCRIT 23.2 % (36.0-47.0); MEAN CORPUSCULAR HEMOGLOBIN 26.9 pg (27.0-33.4); MEAN CORPUSCULAR HGB CONC 33.4 g/dL (32.0-36.0); MEAN CORPUSCULAR VOLUME 81 fl (80-97); PLATELET COUNT 256 10^3/uL (150-450); RED BLOOD COUNT 2.88 10^6/uL (3.72-5.28); RED CELL DISTRIBUTION WIDTH 16.2 % (11.5-14.0); WHITE BLOOD COUNT 11.9 10^3/uL (4.0-10.5)
[2019-08-02 07:34] LABS: HEMOGLOBIN 7.7 g/dL (12.0-15.5)
[2019-08-02] MEDS: DOCUSATE SODIUM 100 MG CAPSULE PO SCH ×2 (10:20→17:32)
[2019-08-02] MEDS: PRENATAL VITAMIN W DHA CAPSULE PO SCH (10:20)
[2019-08-02] MEDS: SIMETHICONE 80 MG TAB.CHEW PO PRN ×2 (14:12→20:13)
--- NOTE | 2019-08-02 14:16 | PDOC PROGRESS REPORT ---
Subjective-OB Progress Note for:: 08/02/19 Subjective: reports bleeding slowing, pain controlled with current meds. states she is not passing gas yet. discussed low H/H. pt states she feels very fatigued and has heart palpitations at times. denies SOB/dizziness/headache. wants to get CBC in AM and hold off on blood tx today-she wants to see how she feels after she gets some rest Physical Exam (OB) Vital Signs: Temp Pulse Resp BP Pulse Ox 98.2 F 87 16 121/77 100 08/02/19 11:54 08/02/19 11:54 08/02/19 11:54 08/02/19 11:54 08/02/19 11:54 Intake & Output 08/01/19 08/02/19 08/03/19 06:59 06:59 06:59 Intake Total 475 600 Output Total 900 Balance -425 600 Weight 87.997 kg - Dressing Removed: No - Opsite - scant drainage noted - Abdomen Description: Tender, Soft, Round Hernia Present: No Bowel Sounds: Normoactive Fundal Description: Firm, Midline Fundal Height: u/u - u/2 - Abdominal Distension: No distension Tenderness: Tender - Extremities Lower extremities: Marti's sign - neg Calf: Normal, Nontender Objective-Diagnostic Laboratory: 08/02/19 06:50 08/02/19 06:50 WBC 11.9 H RBC 2.88 L Hgb 7.7 L D Hct 23.2 L MCV 81 MCH 26.9 L MCHC 33.4 RDW 16.2 H Plt Count 256 Assessment and Plan(PN) - Assessment and Plan (1) IUGR (intrauterine growth retardation), delivered, current hospitalization Is this a current diagnosis for this admission?: Yes (2) Late onset antepartum care Is this a current diagnosis for this admission?: Yes - Time Spent with Patient Time with patient: Less than 15 minutes Medications reviewed and adjusted accordingly: Yes - Disposition Anticipated Discharge: Home Within: within 48 hours
[2019-08-02] MEDS: FERROUS SULFATE 325 MG TABLET PO SCH (16:23)
[2019-08-02] MEDS ORDERED: IBUPROFEN 800 MG TABLET PO SCH (21:00)
[2019-08-03] MEDS: IBUPROFEN 800 MG TABLET PO SCH ×3 (01:26→12:10)
[2019-08-03 06:54] LABS: ABSOLUTE EOSINOPHILS # (AUTO) 0.2 10^3/uL (0.0-0.6); ABSOLUTE LYMPHOCYTES (AUTO) 2.5 10^3/uL (0.5-4.7); ABSOLUTE MONOCYTES (AUTO) 0.5 10^3/uL (0.1-1.4); ABSOLUTE NEUT (AUTO) 5.3 10^3/uL (1.7-8.2); BASOPHILS % (AUTO) 0.4 % (0-2); EOSINOPHILS % (AUTO) 2.7 % (0-6); HEMATOCRIT 23.2 % (36.0-47.0); MEAN CORPUSCULAR HEMOGLOBIN 26.7 pg (27.0-33.4); MEAN CORPUSCULAR HGB CONC 33.1 g/dL (32.0-36.0); MEAN CORPUSCULAR VOLUME 81 fl (80-97); MONOCYTES % (AUTO) 6.3 % (3-13); PLATELET COUNT 284 10^3/uL (150-450); RED BLOOD COUNT 2.87 10^6/uL (3.72-5.28); RED CELL DISTRIBUTION WIDTH 15.7 % (11.5-14.0); SEGMENTED NEUTROPHILS % (AUTO) 61.6 % (42-78); TOTAL CELLS COUNTED % (AUTO) 100 %; WHITE BLOOD COUNT 8.6 10^3/uL (4.0-10.5)
[2019-08-03 06:55] LABS: HEMOGLOBIN 7.7 g/dL (12.0-15.5)
[2019-08-03] MEDS: PRENATAL VITAMIN W DHA CAPSULE PO SCH (10:34)
[2019-08-03] MEDS: FERROUS SULFATE 325 MG TABLET PO SCH (10:34)
[2019-08-03] MEDS: DOCUSATE SODIUM 100 MG CAPSULE PO SCH (10:34)
[2019-08-03] MEDS: OXYCODONE-ACETAMINOPHEN 5-325 MG TABLET PO PRN (10:41)
[2019-08-03] MEDS ORDERED: SERTRALINE HCL 50 MG TABLET PO ONE (10:52)
--- NOTE | 2019-08-03 11:07 | PDOC DISCHARGE SUMMARY ---
Impression - Admit/DC Date/PCP Admission Date/Primary Care Provider: 08/01/19 12:55 BRANDON GAMING MD Discharge Date: 08/03/19 - POD #2, s/p of Twin A, then needed to deliver twin B due to presentation. Pt tearful today, baby A was transferred do wn to [facility] and she has not been able to see that baby yet. she is bottle feeding. A+, Rubella Immune. Denies dizziness when up to void. No c/o SOB, headache - Discharge Diagnosis (1) with 34 completed weeks gestation Is this a current diagnosis for this admission?: Yes (2) Twin gestation in third trimester Is this a current diagnosis for this admission?: Yes (3) Delivery by section for footling breech presentation Is this a current diagnosis for this admission?: Yes (4) Anxiety Is this a current diagnosis for this admission?: Yes (5) Acute blood loss anemia Is this a current diagnosis for this admission?: Yes (6) History of bilateral tubal ligation Is this a current diagnosis for this admission?: Yes - Additional Information Resuscitation Status: Full Code Discharge Diet: As Tolerated, Regular Discharge Activity: Activity As Tolerated, No Driving, No Lifting Over 10 Pounds, Pelvic Rest Referrals: BRANDON GAMING MD [Primary Care Provider] - Prescriptions: Ferrous Sulfate [Feosol 325 mg Tablet] 325 mg PO DAILY #30 tablet Ibuprofen [Motrin 800 mg Tablet] 800 mg PO Q6 #60 tablet Oxycodone HCl/Acetaminophen [Percocet 5-325 mg Tablet] 1 tab PO Q4HP PRN #30 t ablet PRN Reason: Pain Scale Of 4 Sertraline HCl [Zoloft 50 mg Tablet] 50 mg PO DAILY #30 tablet Home Medications: Vitamin [-U Multiple Vitamin Capsule] 1 cap PO DAILY 07/20/19 Ferrous Sulfate [Feosol 325 mg Tablet] 325 mg PO DAILY #30 tablet 08/03/19 Ibuprofen [Motrin 800 mg Tablet] 800 mg PO Q6 #60 tablet 08/03/19 Oxycodone HCl/Acetaminophen [Percocet 5-325 mg Tablet] 1 tab PO Q4HP PRN #30 tablet 08/03/19 Sertraline HCl [Zoloft 50 mg Tablet] 50 mg PO DAILY #30 tablet 08/03/19 HPI Reason(s) for Admission: Onset of Labor, Ceasarean Section-Primary, Tubal Ligation, Labor, Twins Procedures: Ultrasound Intrapartum Procedure(s): Spontaneous Vaginal Delivery, : Low Cervical, Transverse Intrapartum Procedure Note: of baby A, then Primary w/ BTL Twin B, footling breech Results Laboratory Results: WBC 8.6 10^3/uL (4.0-10.5) 08/03/19 06:33 RBC 2.87 10^6/uL (3.72-5.28) L 08/03/19 06:33 Hgb 7.7 g/dL (12.0-15.5) L 08/03/19 06:33 Hct 23.2 % (36.0-47.0) L 08/03/19 06:33 MCV 81 fl (80-97) 08/03/19 06:33 MCH 26.7 pg (27.0-33.4) L 08/03/19 06:33 MCHC 33.1 g/dL (32.0-36.0) 08/03/19 06:33 RDW 15.7 % (11.5-14.0) H 08/03/19 06:33 Plt Count 284 10^3/uL (150-450) 08/03/19 06:33 Lymph % (Auto) 29.0 % (13-45) 08/03/19 06:33 [place] % (Auto) 6.3 % (3-13) 08/03/19 06:33 Eos % (Auto) 2.7 % (0-6) 08/03/19 06:33 Baso % (Auto) 0.4 % (0-2) 08/03/19 06:33 Absolute Neuts (auto) 5.3 10^3/uL (1.7-8.2) 08/03/19 06:33 Absolute Lymphs (auto) 2.5 10^3/uL (0.5-4.7) 08/03/19 06:33 Absolute Monos (auto) 0.5 10^3/uL (0.1-1.4) 08/03/19 06:33 Absolute Eos (auto) 0.2 10^3/uL (0.0-0.6) 08/03/19 06:33 Absolute Basos (auto) 0.0 10^3/uL (0.0-0.2) 08/03/19 06:33 Seg Neutrophils % 61.6 % (42-78) 08/03/19 06:33 RPR NONREACTIVE (NONREACTIVE) 08/01/19 13:20 Blood Type A POSITIVE 08/01/19 13:20 Antibody Screen NEGATIVE 08/01/19 13:20 Plan Health Concerns: Iron infusion prior to d/c home today. Will start pt on zoloft. f/u if feeling overwhelmed or having PP depression. Iron rich foods Plan of Treatment: d/c to home. F/up with [facility] for incision check in one week Time Spent: Less than 30 Minutes
[2019-08-03] MEDS ORDERED: IRON SUCROSE COMPLEX INJ/PF 100 MG/5 ML SDV IV ONE (12:00)
[2019-08-03 12:48] VITALS: BP 126/65
== END 2019-08-03 15:00 | disposition home or self-care (01) | DRG 784 ==
LOC: LC 12:24 → LR 12:55 → 2S 18:05
PROVIDERS: ADMIT Obstetrics & Gynecology; ATTEND Obstetrics & Gynecology
PROC: 10D00Z1 Extraction of Products of Conception, Low, Open Approach (ICD-10-PCS; principal; 2019-08-01)
PROC: 0UL70CZ Occlusion of Bilateral Fallopian Tubes with Extraluminal Device, Open Approach (ICD-10-PCS; 2019-08-01)
PROC: 10E0XZZ Delivery of Products of Conception, External Approach (ICD-10-PCS; 2019-08-01)
PROC: 3E02340 Introduction of Influenza Vaccine into Muscle, Percutaneous Approach (ICD-10-PCS; 2019-08-03)
DX: O60.14X1 Preterm labor third trimester with preterm delivery third trimester, fetus 1 (principal); D62 Acute posthemorrhagic anemia; O60.14X2 Preterm labor third trimester with preterm delivery third trimester, fetus 2; O30.003 Twin pregnancy, unspecified number of placenta and unspecified number of amniotic sacs, third trimester; O32.8XX2 Maternal care for other malpresentation of fetus, fetus 2; O36.5930 Maternal care for other known or suspected poor fetal growth, third trimester, not applicable or unspecified; O99.344 Other mental disorders complicating childbirth; F41.9 Anxiety disorder, unspecified; O99.02 Anemia complicating childbirth; Z30.2 Encounter for sterilization; Z37.2 Twins, both liveborn; Z3A.34 34 weeks gestation of pregnancy; Z37.0 Single live birth; Z23 Encounter for immunization
CPT/HCPCS: 1961; 36415; 85025; 85027; 86592; 86850; 86900; 86901; 88307; 90686; 94760; 94799; J0131; J0690; J1170; J1756; J1885; J2250; J2270; J2405; J2540; J2590; J2704; J3010; J3490; J7120